=== PATIENT | female | born 1945 | race Caucasian/White ===

== ENCOUNTER → 2021-01-18 09:24 | Outpatient (CLI) | payer MEDICARE, SELFPAY ==
--- NOTE | ~2021-01-18 | MR_ITS ---
EXAMINATION: MR lumbar spine wo con DATE: 01/18/2021 10:29 INDICATION: Lumbar radiculopathy TECHNIQUE: Magnetic resonance imaging (MRI) of the lumbar spine was performed without intravenous con trast. Sequences included sagittal T2-weighted FSE, sagittal T2-weighted FS FSE, sagittal T1-weighted FSE, and axial T2-weighted FSE. COMPARISON: None FINDINGS: 1-2 mm retrolisthesis L2 on L3 and L3 on L4. Vertebral body heights are normal. Hemangiomas at L2, L3 and S1. Mild disc height loss at L2-L3 and L4-L5, disc desiccation and minimal disc height loss at L 3-L4. Annular fissures at each of these levels. The conus medullaris terminates at L1-L2. There is no rmal signal in the caudal spinal cord. Paravertebral soft tissues are unremarkable. The following dis c levels are specifically discussed: T12-L1: Small central disc protrusion. There is mild bilateral facet joint osteoarthritis. There is n o neural foraminal stenosis. There is no central canal stenosis. L1-L2: Small central disc protrusion. There is mild left and moderate right facet joint osteoarthriti s. There is no neural foraminal stenosis. There is no central canal stenosis. L2-L3: Disc is bulging. There is mild left and moderate right facet joint osteoarthritis. There is mi ld left and minimal right neural foraminal stenosis. There is mild central canal stenosis. L3-L4: Disc is bulging. There is mild left and moderate right facet joint osteoarthritis. There is mi ld bilateral neural foraminal stenosis. There is mild central canal stenosis. L4-L5: Disc is bulging. There is hypertrophy of the ligamentum flavum. There is severe bilateral face t joint osteoarthritis. There is moderate left and mild to moderate right neural foraminal stenosis. There is anterior bulging of the posterior epidural fat. There is mild to moderate central canal sten osis along with narrowing of the left and right lateral recesses. L5-S1: The disc does not extend beyond the endplate margin. There is severe bilateral facet joint ost eoarthritis. There is minimal bilateral neural foraminal stenosis. There is no central canal stenosis . IMPRESSION: 1. Multilevel lumbar degenerative disc disease and moderate to severe facet osteoarthritis. Reviewed, dictated and finalized at location B. TENANT FIRE FIGHTER IMPRESSION: 1. Multilevel lumbar degenerative disc disease and moderate to severe facet ost eoarthritis.
== END ==
PROVIDERS: PCP Family Medicine; Visit Provider Family Medicine
DX: M47.25 Other spondylosis with radiculopathy, thoracolumbar region (principal); M48.05 Spinal stenosis, thoracolumbar region; M47.27 Other spondylosis with radiculopathy, lumbosacral region; M48.07 Spinal stenosis, lumbosacral region
CPT/HCPCS: 72148

== ENCOUNTER 2024-10-08 15:29 | Emergency (ER) | payer MEDICARE, SELFPAY ==
--- OUTSIDE RECORDS SUMMARY | 2024-10-07 14:30 | XMS_ITS | Encounter Summary ---
Author Organization [facility] Healthcare Address [address] [place] [address] Care Team Providers Care Dry Room Attendant Name Role Phone David Chiang DPM Unavailable [phone] Jaylin Mackey DO Primary Care Provider [phone] Reason for Visit * Reason Comments Pain Encounter Details Date Type Department Care Team (Late st Contact Info) Description 10/07/2024 2:30 PM CDT Office Visit [facility] Medical Group Orthopedics and Sports Medicine [address] [place] [address] [address] [place] [phone] Daryl Martinez MD [address] [place] [place] [id number] Rotator cuff tear arthropathy, left (Primary Dx) Social History Tobacco Use Types Packs/Day Years Used Date Smoking Tobacco: Former Cigarettes 1 1974 Smokeless Tobacco: Never Alcohol Use Standard Drinks/Week Comments Not Currently 0 (1 standard drink = 0.6 oz pur e alcohol) Humiliation, Afraid, Rape, and Kick questionnair e Answer Date Recorded Within the last year, have y ou been afraid of your partner or ex-partner? No 12/09/2019 Within the last year, have y ou been humiliated or emotionally abused in other ways by your partner or ex-partner? No Within the last year, have y ou been kicked, hit, slapped, or otherwise physically hurt by your partner or ex-partner? No 12/09/2019 Within the last year, have y ou been raped or forced to have any kind of sexual activity by your partner or ex-partner? No 12/09/2019 Social Connection and Isolation Panel Answer Date Recorded In a typical week, how many times do you talk on the phone with family, friends, or neighbors? More than three times a week 12/09/2019 How often do you get togethe r with friends or relatives? More than three times a week 12/09/2019 How often do you attend chur ch or advent services? Never 12/09/2019 Do you belong to any clubs o r organizations such as restorationism groups, unions, fraternal or athletic groups, or school groups? Yes 12/09/2019 How often do you attend meet ings of the clubs or organizations you belong to? More than 4 times per year 12/09/2019 Are you , , di vorced, , never , or living with a partner? 12/09/2019 AUDIT-C Answer Date Recorded Q1: How often do you have a drink containing alcohol? Never 03/20/2023 Q2: How many drinks containi ng alcohol do you have on a typical day when you are drinking? Patient does not drink Q3: How often do you have si x or more drinks on one occasion? Never 03/20/2023 Overall Financial Resource Strain (CARDIA) Answe r Date Recorded How hard is it for you to pa y for the very basics like food, housing, medical care, and heating? Not hard at all 12/09/2019 PHQ-2 Answer Date Recorded PHQ-2 Total Score (If total score is 3 or more points, staff should administer the PHQ-9) 0 12/14/2022 [facility] - Occupational Stress Questionnaire Answer Date Recorded Do you feel stress - tense, restless, nervous, or anxious, or unable to sleep at night because your mind is troubled all the time - these days? Not at all 12/09/2019 Exercise Vital Sign Answer Date Recorde d On average, how many days pe r week do you engage in moderate to strenuous exercise (like a brisk walk)? 1 day 12/09/2019 On average, how many minutes do you engage in exercise at this level? 40 min 12/09/2019 Hunger Vital Sign Answer Date Recorded Within the past 12 months, y ou worried that your food would run out before you got the money to buy more. Never true 12/09/19 20 Within the past 12 months, t he food you bought just didn't last and you didn't have money to get more. Never true 12/09/2019 PRAPARE - Transportation Answer Date Re corded In the past 12 months, has l ack of transportation kept you from medical appointments or from getting medications? No 11/13 In the past 12 months, has l ack of transportation kept you from meetings, work, or from getting things needed for daily living? No 12/09/2019 Personal Safety Answer Date Recorded Have you ever been in or are you currently in a harmful physical or emotional relationship or is someone making you feel afraid or unsafe? Denies 12/27/2022 Education Answer Date Recorded What is the highest level of school you have completed or the highest degree you have received? 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 Gender Identity Not on file Sexual Orientation Not on file Occupation Industry Job Start Date Job End Date reitred Not on file Not on file Not on file documented as of this encounter Last Filed Vital Signs Vital Sign Reading Time Taken Comments Blood Pressure - - Pulse - - Temperature - - Respiratory Rate - - Oxygen Saturation - - Inhaled Oxygen Concentration - - Weight 83.5 kg (184 lb) 10/07/2024 2:17 PM CDT Height 162.6 cm (5' 4) 10/07/2024 2:17 PM CDT Body Mass Index 31.58 10/07/2024 2:17 PM CDT documented in this encounter Progress Notes * Daryl Martinez MD - 10/07/2024 2:30 PM CDT This patient has verbally consented to recording this visit in order to utilize AI technology in generating this note. VISIT DATE: 10/07/2024 CHIEF COMPLAINT Pain of the Left Shoulder HISTORY OF PRESENT ILLNESS History of Present Illness Marcela Campos is a 79 year old female who presents with worsening left shoulder pain and limited mobility. She has experienced left shoulder issues for the past three years, with severe pain rated as an eight or nine out of ten at its worst, currently a five out of ten. The pain is persistent and significantly impacts her ability to lift her arm, which she has been unable to do for the past two years. It also disrupts her sleep. She has not received any recent cortisone injections for her shoulder. An MRI at [facility] was part of her previous workup. She manages her pain with natural substances from [place], which she finds more effective than prescribed pain medications. She is prescribed oxycodone 25 mg to be taken threetimes a day but avoids taking it regularly. No numbness or tingling in the left arm. She has had a challenging experience with previous doctors, including a misdiagnosis of diabetes, and has expressed frustration with the delay in surgical intervention for her shoulder issues. MEDICATIONS She has a current medication list which includes the following prescription(s): acetaminophen er, buspirone, cholecalciferol, cyanocobalamin, ergocalciferol, ferrous sulfate, hydrocortisone, lamotrigine, melatonin, multivitamin, omeprazole, oxycodone-acetaminophen, syringe with needle, trazodone, vitamin b complex, atorvastatin, docosahexaenoic acid/epa, losartan, nystatin, oxybutynin xl, and tizanidine. ALLERGIES She is allergic to haemophilus influenzae type b, latex, influenza virus vaccine bivalent, flexeril[cyclobenzaprine], haemophilus b polysaccharide conj w/tetanus toxoid, penicillins, seroquel [quetiapine], and tuberculin ppd. SOCIAL HISTORY reports that she quit smoking about 50 years ago. Her smoking use included cigarettes. She started smoking about 62 years ago. She has a 12 pack-year smoking history. She has never used smokeless tobacco. She reports that she does not use drugs. Patient denies consuming alcoholic drinks. PHYSICAL EXAM Physical Exam SKIN: Skin intact over the shoulder. Nontender to palpation over the shoulder. SHOULDER: Left shoulder forward elevation to 30 degrees, passive forward elevation to 120 degrees. External rotation to 20 degrees. Internal rotation to PSIS. STRENGTH: Left shoulder 4/5 strength with resisted external rotation. 2/5 strength with thumbs downabduction. NEURO: 5 out of 5 strength in scheduling agent, dorsal interossei, and thumb extension. Sensation intact to light touch in the distribution of the radial, ulnar, and median nerves. The extremity is warm and wellperfused. NECK: Full neck range of motion. Negative Spurlings sign. IMAGING Results I reviewed and interpreted x-rays of the patient's left shoulder from 08/18/2024. The patient does have superior elevation of the left humeral head. There is mndt-jz-oqxj osteoarthritis of the superior glenohumeral joint space and a decreased acromial humeral interval. There were subchondral cysts in the superior humeral head. There were mild degenerative changes of the acromioclavicular joint space. I also reviewed an MRI scan of the patient's left shoulder from 08/27/2024. The patient does have eudh-sb-typu osteoarthritis of the glenohumeral joint space with a moderate size effusion. The patient has good deltoid muscle belly without any signs of atrophy of the deltoid. The patient does have a massive tear of the supraspinatus and infraspinatus tendons retracted to the glenohumeral jointspace. The patient does have severe fatty atrophy of the infraspinatus and supraspinatus muscle bellies. There is some mild atrophy of the teres minor muscle belly. Diagnoses and all orders for this visit: Rotator cuff tear arthropathy, left (Primary) ASSESSMENT End-stage rotator cuff tear arthropathy left shoulder 2. The patient getting care reestablished with PMD and cd mixer helper in preparation for shoulder replacement Assessment & Plan Left shoulder rotator cuff tear with advanced osteoarthritis Chronic tear of supraspinatus and infraspinatus tendons with severe arthritis and vrkc-el-syqv contact. Deltoid muscle intact, suitable for surgery. Pain significantly affects sleep and daily activities. - Recommend reverse shoulder replacement surgery to improve arm elevation and pain relief. - Refer to cd mixer helper at [facility] for cardiac evaluation prior to surgery. - Refer to primary care physician at [facility] for preoperative evaluation and management. - Schedule follow-up in six weeks to review progress and readiness for surgery. 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) Take 1 tablet (15 mg total) by mouth daily Patient Reported 02/20/2022 10/07/2024 nitrofurantoin monohydrate (MACROBID) 100 mg capsule Take 1 capsule (100 mg total) by mouth 2 (two) times a day Patient Reported 03/12/2023 10/07/2024 spironolactone (ALDACTONE) 25 mg tabletIndications:Rheumat ic tricuspid insufficiency Take 1 tablet (25 mg total) by mouth 2 (two) times a day Patient Reported 02/20/2022 10/07/2024 documented as of this encounter Care Teams Dry Room Attendant Relationship Specialty Start Date End Date Jaylin Mackey DO [address] [place] [address] PCP - General Family Medicine 08/18/24 David Chiang, ALLEY Referring Physician Podiatry 12/09/19 documented as of this encounter
--- OUTSIDE RECORDS SUMMARY | 2024-10-07 14:30 | XMS_ITS | Encounter Summary ---
Author Organization [facility] Healthcare Address [address] [place] [address] Care Team Providers Care Television Parts Tester Name Role Phone David Chiang DPM Unavailable [phone] Jaylin Mackey DO Primary Care Provider [phone] Reason for Visit * Reason Comments Pain Encounter Details Date Type Department Care Team (Late st Contact Info) Description 10/07/2024 2:30 PM CDT Office Visit [facility] Medical Group Orthopedics and Sports Medicine [address] [place] [address] [address] [place] [phone] Daryl Martinez MD [address] [facility] [address] [place] [place] [id number] Rotator cuff tear arthropathy, left (Primary [...] often do you attend chur ch or sabianist services? Never 12/09/2019 Do you belong to any clubs o r organizations such as evangelical groups, unions, fraternal or athletic groups, or [...] PHQ-9) 0 12/14/2022 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 An MRI at [facility] was part of her previous workup. She manages her pain with natural substances from [place], which she finds more effective than prescribed [...] NEURO: 5 out of 5 strength in it application administrator, dorsal interossei, and thumb extension. Sensation intact to light touch in the distribution of the radial, ulnar, and median nerves. The extremity is warm and wellperfused. NECK: Full neck range of motion. Negative Spurlings sign. IMAGING Results I reviewed and interpreted x-rays of the patient's left shoulder from 08/18/2024. The patient does have superior elevation of the left humeral head. There is ysct-rc-vpza osteoarthritis of the superior glenohumeral joint space and a decreased acromial humeral interval. There were subchondral cysts in the superior humeral head. There were mild degenerative changes of the acromioclavicular joint space. I also reviewed an MRI scan of the patient's left shoulder from 08/27/2024. The patient does have nwfl-bh-sdzp osteoarthritis of the glenohumeral joint space with [...] patient getting care reestablished with PMD and research instructor in preparation for shoulder replacement Assessment & Plan Left shoulder rotator cuff tear with advanced osteoarthritis Chronic tear of supraspinatus and infraspinatus tendons with severe arthritis and dnnd-fu-aaft contact. Deltoid muscle intact, suitable for surgery. Pain significantly affects sleep and daily activities. - Recommend reverse shoulder replacement surgery to improve arm elevation and pain relief. - Refer to research instructor at [facility] for cardiac evaluation prior to surgery. - Refer to primary care physician at [facility] for preoperative evaluation and management. - Schedule [...] documented as of this encounter Care Teams Television Parts Tester Relationship Specialty Start Date End Date Jaylin Mackey DO [address] [place] [address] PCP - General Family Medicine 08/18/24 David Chiang, ALLEY Referring Physician Podiatry 12/09/19 documented as of this encounter
--- NOTE | ~2024-10-08 | CT_ITS ---
EXAMINATION: CT brain odalis lau, 10/08/2024 18:08 CDT HISTORY: head trauma 3 days prior, confusion COMPARISON: No comparisons available. Technique: Axial images obtained of the brain without contrast. One or more of the following dose reduction techniques were used: automated exposure control, adjustment of the mA and/or kV according to patient size, use of iterative reconstruction technique. Findings: No acute infarct or parenchymal hemorrhage. No abnormal mass or mass effect. No midline shift. No extra-axial fluid collections. No hydrocephalus. Mastoid air cells unremarkable. Sinuses and orbits unremarkable. No acute fracture. No significant facial or scalp soft tissue swelling evident. No radiopaque foreign body is seen. Impression: 1.No acute intracranial abnormality. Reviewed, dictated and finalized at location A. Impression: 1.No acute intracranial abnormality.
[2024-10-08 15:31] VITALS: BP 129/58; PULSE 67; RESP 17; TEMP 36.4; O2SAT 97
--- OUTSIDE RECORDS SUMMARY | 2024-10-08 15:32 | XMS_ITS | Encounter Summary ---
Author Organization [facility] Address [address] [place] [address] [place] [address] Care Team Providers Care Special Population Paraprofessional Name Role Phone Kody Valdivia MD Primary Care Provider Kody Valdivia MD Unavailable Phillip Jefferson MD Unavailable [phone] Unknown, Provider Primary Care Provider Unavaila ble Encounter Details Date Type Department Care Team (Late Contact Info) Description 04/12/2020 Lab Requisition [facility] Care DermPath Lab [address] [place] [phone] Elma Marino MD [address] [facility] [address] [place] [address] Social History Tobacco Use Types Packs/Day Years Used Date Smoking Tobacco: Former Cigarettes 1 12 1 03/20/1970 - 01/17/1983 Alcohol Use Standard Drinks/Week Comments No 0 (1 standard drink = 0.6 oz pur e alcohol) Comments Unknown Sex and Gender Information Value Date Recorded Sex Assigned at Not on file 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 Author Blood Pressure < 140/90 Blood Pressure Hyperlipidemia 130/79(09/14 9:48 AM CDT) No Santi Carrasco STEVEN LDL CALCULATED < 130 Result Component Hyperlipidemia 127(01/17/20 12 3:25 AM DECORATOR MANNEQUIN) No Santi Carrasco STEVEN Weight (LB) < 200 lb Weight Hyperlipidemia 105.7 kg (233 lb)(09/15/19 16 9:48 AM CDT) No Santi Carrasco STEVEN documented as of this encounter Procedures Procedure Name Priority Date/Time Associated Diagnosis Comments DERMATOPATHOLOGY Routine 04/08/2020 12:0 0 AM DECORATOR MANNEQUIN documented in this encounter Results * DERMATOPATHOLOGY (04/08/2020 12:00 AM DECORATOR MANNEQUIN) Case Report Dermatopathology Report Case: [id number] Authorizing Provider: Elma Marino MD Collected: 04/08/2020 12:00 AM Ordering Location: [facility] DermPath Lab Received: 04/12/2020 10:21 AM Pathologist: Felicita Rodriguez MD Specimen: Skin, left forehead 1:29 PM [facility] DERMATOPATHOLOGY LABORATORY Final Diagnosis Specimen A. SKIN, left forehead: SQUAMOUS CELL CARCINOMA IN SITU, PRESENT AT THE BASE OF THE SPECIMEN (D04.39) (see microscopic description and comment) 1:29 PM [facility] DERMATOPATHOLOGY LABORATORY at [address] DEC[address] MANNEQUIN Clinical History R/O SCC, SK. 1:29 PM [facility] DERMATOPATHOLOGY LABORATORY Gross Description Specimen A: Received is one formalin filled container labeled with the patient's name and designated left forehead. The specimen consists of a shave biopsy measuring [id number]. Jar 0+. 1:29 PM [facility] DERMATOPATHOLOGY LABORATORY Microscopic Description Specimen A. SKIN, left forehead: The epidermis shows parakeratosis, full thickness disorderly maturation of keratinocytes, mitoses at different levels, and dyskeratotic cells. The lesion extends to the base of the biopsy. COMMENT: An invasive squamous cell carcinoma cannot be ruled out. 1:29 PM [facility] DERMATOPATHOLOGY LABORATORY Disclaimer An external and internal positive and negative controls are appropriate for the histochemical, immunohistochemical and immunofluorescence stain(s) in this case (if any), except where stated explicitly. The performance characteristics of the stain(s) cited in this report were developed and its performance characteristic determined by the Dermatopathology Laboratory at [facility], directed by Dr. Adina Rodriguez. These tests need not be, and therefore are not, approved by the [place] Food and Drug Administration. The tests are used for clinical purposes. Billing Codes Specimen Charges Stain Charges 08960 1 1 1:29 PM DEC[facility]IN DERMATOPATHOLOGY LABORATORY Embedded Images 1 1:29 PM DEC[facility]NE[facility] DERMATOPATHOLOGY LABORATORY Pathology/Cytolog y TISSUE SPECIMEN FROM SKIN / Unknown 04/08/2020 04/12/2020 10:21 AM DECORATOR MANNEQUIN Elma Marino MD LAB - PATHOLOGY/CYTOLOGY ORD ERABLES Final Result DERMATOPATHOLOGY LABORATORY [facility] - Department of Dermatology [facility] Medicine [address] [place] [address], [address] [phone] documented in this encounter Visit Diagnoses Not on filedocumented in this encounter Care Teams Special Population Paraprofessional Relationship Specialty Start Date End Date Kody Valdivia MD [address] [address] PCP - General 04/12/20 05/18/24 Unknown, Provider PCP - General 05/19/24 Kody Valdivia MD [address] [place] [address] 04/12/20 Phillip Jefferson MD [address] [place] [address] Neurology 11/19/12 documented as of this encounter
--- OUTSIDE RECORDS SUMMARY | 2024-10-08 15:32 | XMS_ITS | Clinical Summary ---
Author Organization [employer] Address [address] Attn: Epic Prelude ADT AAYUSH GALLAGHER [address] Care Team Providers Care Almond Pan Finisher Name Role Phone Todd Walters MD Primary Care Provider Allergies Active Allergy Reactions Criticality Noted Date Comments Ibuprofen Unknown Latex Other (See Comments) 07/25/2016 Unknown Penicillins Unknown Quetiapine Dizziness Low 09/15/2015 Medications hyoscyamine 0.125 mg tablet Take 1 Tablet (0.125 mg) by mouth every 6 hours as needed for Spasm. 30 Tablet None Active Additional Information Patient not taking.Reported on 09/22/2024 ondansetron (ZOFRAN) 4 mg Tablet Take 1 Tablet (4 mg) by mouth every 6 hours as needed for Nausea/Emesis. 20 Tablet 0 7 Active Additional Information Patient not taking.Reported on 09/22/2024 Hydrocortisone- Pramoxine 1-1 % Cream Apply to affected area. 7 Active Additional Information Patient not taking.Reported on 09/22/2024 prazosin (MINIPRESS) 1 mg capsule Take 1 mg by mouth daily at bedtime. 7 Active Additional Information Patient not taking.Reported on 09/22/2024 doxepin (SINEquan) 150 mg Capsule Take 150 mg by mouth daily at bedtime. 7 Active Additional Information Patient not taking.Reported on 09/22/2024 meloxicam (MOBIC) 15 mg tablet Take 15 mg by mouth daily. 7 Active Additional Information Patient not taking.Reported on 09/22/2024 amLODIPine (NORVASC) 10 mg tablet Take 10 mg by mouth daily. 7 Active Additional Information Patient not taking.Reported on 09/22/2024 traZODone (DESYREL) 100 mg tablet Take 100 mg by mouth daily at bedtime. 7 Active melatonin 3 mg Tablet Take 3 mg by mouth 1 time daily as needed. Active oxyCODONE (ROXICODONE) 5 mg tablet 5 Active oxyBUTYnin (DITROPAN XL) 10 mg Extended Release 24 hour tablet 4 Active Active Problems Problem Noted Date Diagnosed Date Type II or unspecified type diabetes mellitus without mention of complication, not stated as uncontrolled 12/02/2009 HTN (hypertension) 12/02/2009 Unspecified menopausal and postmenopausal disord er 12/02/2009 Hypothyroidism 10/08/2008 CHF (congestive heart failure) 10/08/2008 Bipolar disorder, unspecified Depressive disorder, not elsewhere classified Resolved Problems Problem Noted Date Diagnosed Date Resolved Date HTN (hypertension) 10/08/2008 0 Overview (06/09/2020): Updating IMO/ICD9 Code and Description Diabetes mellitus type II, uncontrolled 05/27/2008 12/02/2009 Encounters Date Type Department Care Team Description 09/23/2024 External Device Data STL ABSTRACTION Provider, Abstract 09/23/2024 External Device Data STL ABSTRACTION Provider, Abstract 09/23/2024 External Device Data STL ABSTRACTION Provider, Abstract 09/22/2024 2:30 PM CDT Office Visit [facility] 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 - [facility] [address] [facility] [address] [address] Tita Hayward MD Rectocele (Primary Dx); Urinary incontinence, unspecified type from Last 3 Months Immunizations Immunization Administration Dates Next Due Tetanus Vaccine IM 09/21/2008 Social History Tobacco Use Types Packs/Day Years Used Date Smoking Tobacco: Former Alcohol Use Standard Drinks/Week Comments No 0 (1 standard drink = 0.6 oz pur e alcohol) Comments No Sex and Gender Information Value Date Recorded Sex Assigned at Not on file Legal Sex 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 Gender Identity Not on file Sexual Orientation Not on file Last Filed Vital Signs Vital Sign Reading Time Taken Comments Blood Pressure 106/70 09/22/2024 2:35 PM CDT Pulse - - Temperature 37.1 C (98.8 F) 07/25/2016 10:21 PM CDT Respiratory Rate 15 07/25/2016 11:30 PM CDT Oxygen Saturation - - Inhaled Oxygen Concentration - - Weight 84 kg (185 lb 3.2 oz) 09/22/2024 2:35 PM CDT Height 163.8 cm (5' 4.5) 09/22/2024 2:35 PM CDT Body Mass Index 31.3 09/22/2024 2:35 PM CDT Plan of Treatment Upcoming Encounters Date Type Department Care Team (Late st Contact Info) Description 08/20/2025 3:00 PM CDT Office Visit [facility] Minimally Invasive Gynecology [address] [place] [address] Tita Hayward MD [address] [phone] Aditya Sandy MD [address] [place] [address] Health Maintenance Due Date Last Done Comments DIABETES ANNUAL FOOT EXAM 1963 DIABETES MICROALBUMIN ANNUAL SCREEN 1963 LDL CHOLESTEROL ANNUAL 1964 OSTEOPOROSIS SCREENING 08/20/2011 ZOSTER VACCINE (2 of 2) 12/14/2017 10/19/2017 RSV VACCINE (60+ or ) (1 - 1-dose 75+ series) 2021 DIABETES HBA1C Q 6 MONTHS 06/29/20232022, 11/21/2021, 04/07/2010 INFLUENZA VACCINE (#1) 2024 DIABETES ANNUAL RETINAL EXAM 05/19/2025 05/19/2024 DTAP/TDAP/TD VACCINES (3 - T d or Tdap) 06/08/2031 06/07/2021, 09/21/2008 PNEUMOCOCCAL VACCINE 50+ YEARS Completed 0 04/19/2023, 12/09/2019, 06/07/2017 Insurance MEDICARE PART A AND B [employer] MEDICARE SUPP AESSI Advance Directives For more information, please contact: [phone] Documents on File Type Date Recorded Patient Hydro Generation Supervisor Expl anation Advance Directive Living Will 08/08/2016 2:05 PM Advance Directive Living Will Care Teams Almond Pan Finisher Relationship Specialty Start Date End Date Todd Walters MD [facility] [address] [place] [id number] PCP - General Internal Medicine 07/25/16
--- OUTSIDE RECORDS SUMMARY | 2024-10-08 15:32 | XMS_ITS | Encounter Summary ---
Author Organization [facility] Address [facility] [place] [address] Care Team Providers Care Canceling Machine Operator Name Role Phone David Leos MD Primary Care Provider [phone] None, Provider Primary Care Provider Solange Rowe DO Primary Care Provider + [phone] None, Provider Primary Care Provider Earle sunshine Encounter Details Date Type Department Care Team (Late st Contact Info) Description 11/07/2017 Hosp Visit [facility] Outpatient [place] [address] [place] [address] Angela Bhatia, PT [address] [place], [place] [id number] Social History Tobacco Use Types Packs/Day Years Used Date Smoking Tobacco: Former Cigarettes 1 960 - 1970 Smokeless Tobacco: Never Alcohol Use Standard Drinks/Week Comments No 0 (1 standard drink = 0.6 oz pur e alcohol) Comments No Sex and Gender Information Value Date Recorded Sex Assigned at Not on file Legal Sex Female 7:56 PM CDT Gender Identity Not on file Sexual Orientation Not on file Occupation Industry Job Start Date Job End Date Not on file Not on file Not on file Not on file documented as of this encounter Progress Notes * Angela Bhatia, PT - 11/07/2017 11:35 AM CDT Marcela Campos [address](R) 1. Foot pain, bilateral PAIN IN BOTH FEET 2. Plantar fasciitis, bilateral BILATERAL PLANTAR FASCIITIS 3. Dizziness DIZZINESS 4. Gait disturbance ABNORMAL GAIT 11/07/17 Patient called and cancelled appointment for today and all future appointments. States she saw supervisor instrument mechanics on 11/05/17 who wants her to DC OP PT due to pinched nerves in Bilateral feet. DC OP PT due to patient and physician request. 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
--- OUTSIDE RECORDS SUMMARY | 2024-10-08 15:32 | XMS_ITS | Clinical Summary ---
Author Organization [facility] [employer] Address [facility] [facility] [place] [address] Care Team Providers Care Director Shopper Marketing Name Role Phone Kody Valdivia MD Unavailable Phillip Jefferson MD Unavailable [phone] Unknown, Provider Primary Care Provider Unavaila ble Source Comments [facility] [employer],non-owned Affiliates and Associated Physician Practices is amultiple site organization consisting of ambulatory clinics and hospital sitesin [place], [place], [place] and [place]. This disclosure is being madepursuant to the Care Everywhere program and may not contain all information available regarding this patient. Last updated 17.[facility] [employer] Allergies Active Allergy Reactions Criticality Noted Date Comments Ibuprofen 01/16/2012 Latex 09/15/2015 Penicillin G 09/15/2015 Penicillins Urticaria 09/15/2015 Quetiapine Dizziness 09/15/2015 Medications * This document contains information received from the source organization and may not represent a complete record from that organization. * Be aware that medications may not be up to date on this document. Alwaysverify current medications with the patient. lamoTRIgine (LAMICTAL) 150 MG tablet Take 1 Tab by mouth once daily. 30 Tab 0 2 Active DULoxetine (CYMBALTA) 60 MG capsuleIndicati ons:Major Depressive Disorder Take 2 Caps by mouth at bedtime. Indications: Major Depressive Disorder 60 Cap 0 2 Active traZODone (DESYREL) 50 MG tablet Take 1 Tab by mouth nightly as needed for Insomnia. 30 Tab 0 2 Active valsartan-hydro chlorothiazide (DIOVAN HCT) 160-12.5 MG tabletIndicatio ns:Hypertension Take 1 Tab by mouth once daily. Indications: High Blood Pressure 2 Active lamoTRIgine XR 24hr (LAMICTAL XR) 200 MG tablet LAMICTAL XR 200 MG [id number] [LAMOTRIGINE] ; Rx by [facility]. Take one tab by mouth daily.; 09-Jul-2013; Active; Comments: n/a; Quantity: n/a; Refills: n/a; 4 Active Venlafaxine HCl (VENLAFAXINE ER 24HR) 75 MG tablet 6 Active doxepin (SINEQUAN) 100 MG capsule 6 Active traZODone (DESYREL) 150 MG tablet TRAZODONE HCL 150 MG TABS [TRAZODONE HCL] ; Presribed by Psychiatrist. Take two tabs by mouth at bedtime.; 10-Jun-2013; Active; Comments: n/a; Quantity: n/a; Refills: n/a; 4 Active meloxicam (MOBIC) 15 MG tablet Take 15 mg by mouth once daily Active HYDROcodone-justin taminophen (NORCO) 5-325 MG tablet Take 1 Tab by mouth every 8 hours as needed for Pain 30 Tab 0 6 Active vitamin D (CHOLECACIFEROL ) 5000 UNITS Take 1 Cap by mouth once daily 6 Active levothyroxine (SYNTHROID) 75 MCG tablet Take 1 Tab by mouth daily before breakfast 90 Tab 3 6 Active clonazePAM (KLONOPIN) 1 MG tablet 1 Tab 2 times daily as needed for Anxiety 14 Tab 0 6 Active Active Problems Problem Noted Date Diagnosed Date Obesity, Class II, BMI 35-39.9, with comorbidity 12/15/2015 Overview (12/15/2015): BMI 39.99 Abnormality of gait 09/15/2015 Overview (09/15/2015): By: Hector SINGH, TALIA, Gabe; Anxiety disorder 09/15/2015 Overview (09/15/2015): By: Juan Valerio MD; Dorsalgia 09/15/2015 Overview (09/15/2015): By: Hector SINGH CNP, Christopher; Bipolar disorder, in partial remission, most recent episode mixed 09/15/2015 Overview (09/15/2015): By: Hector SINGH CNP, Christopher; Major depressive disorder, single episode 2015 Overview (09/15/2015): By: Juan Valerio MD; Essential (primary) hypertension 09/15/2015 Overview (09/15/2015): By: Juan Valerio MD; Hypothyroidism 09/15/2015 Overview (09/15/2015): By: Hector SINGH CNP, Christopher; Insomnia 09/15/2015 Overview (09/15/2015): By: Hector SINGH CNP, Christopher; Pain in joint 09/15/2015 Overview (09/15/2015): By: Hector SINGH CNP, Christopher; Rheumatoid arthritis 09/15/2015 Overview (09/15/2015): By: Juan Valerio MD; 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 Overview (09/15/2015): By: Juan Valerio MD; 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 Overview (09/15/2015): By: Hector SINGH CNP, Christopher; Vitamin D deficiency 09/15/2015 Rhabdomyolysis 01/23/2012 Anemia 01/23/2012 Elevated liver enzymes 01/22/2012 Hypokalemia 01/22/2012 Cellulitis 01/22/2012 Sinusitis, acute 01/22/2012 GERD (gastroesophageal reflux disease) 2 Prolonged QT interval 01/22/2012 Hyperlipidemia 01/22/2012 Overview (09/15/2015): By: Juan Valerio MD; Medication overdose Acute kidney injury Resolved Problems Problem Noted Date Diagnosed Date Resolved Date Muscle weakness (generalized) 01/17/2012 01/22/2012 Hyperkalemia 01/22/2012 Leukocytosis 01/22/2012 Hepatitis 01/22/2012 Social History Tobacco Use Types Packs/Day Years Used Date Smoking Tobacco: Former Cigarettes 1 12 1 03/20/1970 - 01/17/1983 Tobacco Cessation:Counseling Given: Yes Alcohol Use Standard Drinks/Week Comments No 0 (1 standard drink = 0.6 oz pur e alcohol) Comments Unknown Sex and Gender Information Value Date Recorded Sex Assigned at Not on file Legal Sex Female 10:01 AM 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 Gender Identity Not on file Sexual Orientation Not on file Last Filed Vital Signs Vital Sign Reading Time Taken Comments Blood Pressure 130/79 09/15/2015 9:48 AM CDT Pulse 81 09/15/2015 9:48 AM CDT Temperature 36.8 C (98.3 F) 09/15/2015 9:48 AM CDT Respiratory Rate 18 09/15/2015 9:48 AM CDT Oxygen Saturation 93% 09/15/2015 9:48 AM CDT Inhaled Oxygen Concentration - - Weight 105.7 kg (233 lb) 09/15/2015 9:48 AM CDT Height 162.6 cm (5' 4) 09/15/2015 9:48 AM CDT Body Mass Index 39.99 09/15/2015 9:48 AM CDT Plan of Treatment Upcoming Encounters Date Type Department Care Team (Late st Contact Info) Description 05/25/2025 2:00 PM CDT Office Visit [facility] - Ophthalmology [address] [place] [phone] Casey Scales, DANNA [address] [place] [phone] Health Maintenance Due Date Last Done Comments BONE DENSITY TESTING 1945 MEDICARE AWV 12 MONTHS 1945 DTAP/TDAP/TD VACCINES (1 - Tdap) 1965 PNEUMOCOCCAL VACCINE 50+ (1 of 2 - PCV) 1965 ZOSTER VACCINE (1 of 2) 1996 Respiratory Syncytial Virus (RSV) Vaccine Pt: or over 60 yrs (1 - 1-dose 75+ series) 2021 COVID-19 VACCINE (2023-2 5 season) 2023 INFLUENZA VACCINE (#1) 2024 HEPATITIS C SCREENING Completed 01/19/2012 HEPATITIS B VACCINE Aged Out No longe r eligible based on patient's age to complete this topic HIB VACCINE Aged Out No longer eligi ble based on patient's age to complete this topic HPV VACCINE Aged Out No longer eligi ble based on patient's age to complete this topic MENINGOCOCCAL (Group B) VACC INE SHARED DECISION-MAKING Aged Out No longer eligibl e based on patient's age to complete this topic MENINGOCOCCAL GROUPS A/C/Y/W VACCINE Aged Out No longer eligible b ased on patient's age to complete this topic Goals Goal Patient Goal Type Associated Problems Recent Progress Patient-Stated? Author Blood Pressure < 140/90 Blood Pressure Hyperlipidemia 130/79(09/14 9:48 AM CDT) No [facility] LDL CALCULATED < 130 Result Component Hyperlipidemia 127(01/17/20 12 3:25 AM JEWEL 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) No [facility] Weight (LB) < 200 lb Weight Hyperlipidemia 105.7 kg (233 lb)(09/15/19 16 9:48 AM CDT) No [facility] Procedures Procedure Name Priority Date/Time Associated Diagnosis Comments HEPATITIS SCREEN ACUTE AM Draw 01/19/2012 4:19 AM 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 from Last 3 Months or Most Recently Relevant to Health Maintenance Results * HEPATITIS SCREEN ACUTE (01/19/2012 4:19 AM JEWEL 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) HAV Antibody IgM Negative Negative 01/19/2012 9:27 AM [facility] HBc Antibody IgM Negative Negative 01/19/2012 9:27 AM [facility] HBsAg Negative Negative 01/19/2012 9:27 AM [facility] HCV Antibody Screen Negative Negative 01/19/2012 9:27 AM [facility] Hepatitis C Virus Index <0.02 0.00 - 0.99 01/19/2012 9:27 AM [facility] Blood specimen (specimen) BLOOD SPECIMEN / Unknown 01/19/2012 4:19 AM 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 01/19/2012 4:44 AM 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 Jose Luis Franco MD LAB - CHEMISTRY ORDERABLES Final Result [facility] [address] [place] [address] from Last 3 Months or Most Recently Relevant to Health Maintenance Insurance MEDICAID - [place] MED[place]ARE MEDICARE MEDICAID - OUT OF STATE MEDICARE AET MEDICAID - [place] MED[place]ARE MEDICARE Member Subscriber Plan / Payer (Ef fective 1989-Present) Name:Rani Busby Member ID:[id number] Relation to Subscriber:Self Name:RANI BUSBY Subscriber ID:[id number] Payer ID:Not on file Group ID:Not on file Type:Medicare Address: [place] [phone] MEDICARE MEDICARE Advance Directives * FULL RESUSCITATION (Latest Code Status on File) Date Activated Date Inactivated Comments 01/20/2012 8:59 PM 01/29/2012 5:07 PM * FULL RESUSCITATION Date Activated Date Inactivated Comments 01/17/2012 2:35 AM 01/20/2012 7:28 PM Care Teams Director Shopper Marketing Relationship Specialty Start Date End Date Unknown, Provider PCP - General 05/19/24 Kody Valdivia MD [address] [place] [address] 04/12/20 Phillip Jefferson MD [address] [place] [address] Neurology 11/19/12
--- OUTSIDE RECORDS SUMMARY | 2024-10-08 15:32 | XMS_ITS | Clinical Summary ---
Author Organization [facility] Address [address] [place] [id number] Care Team Providers Care Brake Lining Driller Name Role Phone David Chiang DPM Unavailable [phone] Jaylin Mackey DO Primary Care Provider [phone] Allergies Active Allergy Reactions Criticality Noted Date Comments Cyclobenzaprine Mental status changes Low 11/29/2022 Makes me feel depressed Haemophilus B Polysaccharide Conj W/Tetanus Toxoid Fatigue Low 04/12/2023 Haemophilus Influenzae Type B Swelling,Redness,Fa tigue Medium 03/13/2017 Influenza Virus Vaccine Bivalent Other (See comments) 04/12/2023 Latex Rash,Other (See comments) Medium 05/15/2018 eats away skin flesh eating Penicillins Other (See comments) Low 05/15/2018 Depression Quetiapine Other (See comments) Low 05/15/2018 Insomnia Tuberculin Ppd Redness Low 08/30/2018 Medications melatonin 10 mg tabletIndications :sleep Take 1 tablet (10 mg total) by mouth nightly Active cyanocobalamin (Vitamin B-12) 1,000 mcg/mL injectionIndicati ons:B12 deficiency Inject 1 mL (1,000 mcg total) into the muscle as instructed every 30 (thirty) days 10 mL 3 12/09/19 20 Active syringe with needle 3 mL 25 x 1 1/2 syringeIndication s:B12 deficiency Used to inject b12 once a month 10 Syringe 3 03/16/19 21 Active ferrous sulfate 325 mg (65 mg of elemental iron) tabletIndications :Iron Deficiency Anemia Take 1 tablet (325 mg total) by mouth every morning Active multivitamin capsuleIndication s:Vitamin Deficiency Prevention Take 1 capsule by mouth daily with lunch Active oxybutynin XL (DITROPAN-XL) 10 mg 24 hr tabletIndications :Bladder spasms Take 1 tablet (10 mg total) by mouth 2 (two) times a day 180 tablet 1 03/20/19 23 Active oxyCODONE-acetami nophen (PERCOCET) 5-325 mg per tabletIndications :Other spondylosis with radiculopathy, lumbar region,Lumbar radiculopathy Take 1 tablet by mouth 2 (two) times a day as needed for pain 60 tablet 03/20/19 23 Active lamoTRIgine (LaMICtal) 100 mg tabletIndications :Bipolar Disorder in Remission Take 1 tablet (100 mg total) by mouth nightly 90 tablet 1 05/05/19 23 Active Additional Information Patient taking differently: 150 mgoral Nightly, Indications: Bipolar Disorder in Remission, Informant: Self, Reported on 10/07/2024 cholecalciferol (VITAMIN D-3) 5,000 unit capsuleIndication s:Vitamin D Deficiency Take 1 capsule (5,000 Units total) by mouth daily with lunch 04/13/19 23 Active acetaminophen ER (TYLENOL) 650 mg 8 hr tabletIndications :Pain Take 2 tablets (1,300 mg total) by mouth as needed for pain 04/13/19 23 Active docosahexaenoic acid/epa (FISH OIL ORAL)Indications: supplement Take 1 tablet by mouth daily with lunch Active VITAMIN B COMPLEX ORALIndications:s upplement Take 1 tablet by mouth daily with lunch Active omeprazole (PriLOSEC) 20 mg capsuleIndication s:Treatment of Non-Bleeding Gastric Disorder Take 1 capsule (20 mg total) by mouth daily 30 capsule 2 12/27/19 23 Active Additional Information Patient taking differently:20 mg oralDaily (early AM), Indications: Treatment of Non-Bleeding Gastric Disorder, Informant: Self, Reported on 10/07/2024 busPIRone (BUSPAR) 15 mg tabletIndications :anxiety Take 1 tablet (15 mg total) by mouth 2 (two) times a day 180 tablet 2 01/03/20 23 Active ergocalciferol (VITAMIN D) 50,000 unit capsule Take 1 capsule (50,000 Units total) by mouth once a week 12 capsule 01/03/20 23 Active tiZANidine (ZANAFLEX) 4 mg tablet Take 1 tablet (4 mg total) by mouth daily 03/06/19 24 Active nystatin cream Apply topically as needed 02/15/19 24 Active losartan (COZAAR) 50 mg tablet Take 1 tablet (50 mg total) by mouth 2 (two) times a day 120 tablet 3 03/20/19 24 Active Additional Information Patient not taking.Reported on 10/07/2024 hydrocortisone 1 % cream Apply 1 Application topically 2 (two) times a day 30 g 03/21/19 24 Active traZODone (DESYREL) 150 mg tabletIndications :Primary insomnia Take 1 tablet (150 mg total) by mouth nightly 30 tablet 03/21/19 24 Active atorvastatin (LIPITOR) 10 mg tabletIndications :Elevated cholesterol Take 1 tablet (10 mg total) by mouth daily 90 tablet 4 03/30/19 24 Active meloxicam (MOBIC) 15 mg tabletIndications :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) Take 1 tablet (15 mg total) by mouth daily 90 tablet 02/20/19 23 025 Discontin ued(Patie nt Reported) spironolactone (ALDACTONE) 25 mg tabletIndications :Rheumatic tricuspid insufficiency Take 1 tablet (25 mg total) by mouth 2 (two) times a day 180 tablet 02/20/19 23 025 Discontin ued(Patie nt Reported) nitrofurantoin monohydrate (MACROBID) 100 mg capsule Take 1 capsule (100 mg total) by mouth 2 (two) times a day 03/12/19 24 025 Discontin ued(Patie nt Reported) citalopram (CeleXA) 40 mg tabletIndications :Generalized Anxiety Disorder,major depressive disorder Take 1 tablet (40 mg total) by mouth nightly 30 tablet 03/21/19 24 025 Discontin ued(Patie nt Reported) Hospital, Clinic, or Other Facility Administered Medication Ordered Dose Route Frequency Start Date End Date Status lidocaine (XYLOCAINE) 10 mg/mL (1 %) injection 1 mLIndications:Admi nistration of Local Anesthesia 1 mL One-Time Injection 09/24/2024 09/24/2024 Ended lidocaine (XYLOCAINE) 10 mg/mL (1 %) injection 1 mLIndications:Admi nistration of Local Anesthesia 1 mL One-Time Injection 09/24/2024 09/24/2024 Ended methylPREDNISolone acetate (DEPO-medrol) injection 40 mgIndications:Troc hanteric bursitis of right hip,Trochanteric bursitis of left hip 40 mg intra-artic One-Time Injection 09/24/2024 09/24/2024 Ended methylPREDNISolone acetate (DEPO-medrol) injection 40 mgIndications:Troc hanteric bursitis of right hip,Trochanteric bursitis of left hip 40 mg intra-artic One-Time Injection 09/24/2024 09/24/2024 Ended Active Problems Problem Noted Date Diagnosed Date Chronic pain of both shoulders 10/07/2024 Daytime somnolence 10/07/2024 Decrease in appetite 10/07/2024 Decreased vision in both eyes 10/07/2024 Dizziness 10/07/2024 MCKEON (dyspnea on exertion) 10/07/2024 Female bladder prolapse 10/07/2024 Joint stiffness 10/07/2024 Senile purpura 10/07/2024 Shoulder pain 10/07/2024 Small area radiologic density 10/07/2024 Atherosclerosis of aorta 06/17/2024 Coronary arteriosclerosis 06/17/2024 Hypertensive heart disease w ith congestive heart failure and chronic kidney disease 06/17/2024 Tendinitis of long head of biceps brachii of rig ht shoulder 10/18/2023 Impingement syndrome of right shoulder Primary osteoarthritis of left shoulder 03/22/19 24 Acute vaginitis 03/21/2023 Assessment & Plan (03/21/2023 5:49 PM [facility]): HPI: Condition is not at/near goal. Patient reporting dry external area around vagina from wiping and dryness. A&P: Sent hydrocortizone cream for external use only. Patient to call office if symptoms worsen or do not improve. At risk for polypharmacy 03/21/2023 Overview (03/21/2023): Concern for multiple PCPs Hyponatremia 03/09/2023 Overview (03/21/2023): HPI: Condition is unknown, no data to review at this time to make an evaluation. Sodium at ER visit 129. Resolved at 138 at discharge 03/10/2023. Need patient to get updated labs. Patient reports that she was septic and almost while in the ER. A&P: Discussed/ordered labs. Discussed events of patients ER visit and 1 night hospital stay - education provided on patient condition and the meaning of sepsis. Patient said believe what you want then. Patient will get repeat renal function panel completed 03/21/2023 to assure hyponatremia is resolved and kidney function return to her baseline. Metabolic encephalopathy 03/09/2023 Pelvic fullness 01/02/2023 Assessment & Plan (01/02/2023 10:38 AM [facility]): HPI: Condition is not at/near goal. Patient reports that she is a lways had vaginal pain for as long she can remember. Patient states that Dr. Leos was supposed to put in a referral for her for gynecology but she is never heard from anybody. At our last appointment 12/14/2022 - we placed a referral for MEDICAL DOCTOR MD/MEDICAL DIRECTOR. Today, patient states that she still has not heard from them. Patient shares today that she has a new love interest and is feeling pain with vaginal insertion. Patient reports that this has been going on for over a year accompanied by frequent urinary tract infections and leakage of urine. Patient also reports feeling like she is not completely able to empty her bladder along with feeling of pelvic heaviness. Patient denies any bleeding or trauma to the area. A&P: Concern for cystocele. Referral placed today for MEDICAL DOCTOR MD/MEDICAL DIRECTOR and spoke with scheduling staff to expedite case. Frequent UTI 01/02/2023 Assessment & Plan (03/21/2023 5:30 PM [facility]): HPI: Condition is improving, but not at goal. Patient states she was seen at outside facility in which she would not disclose on 03/08/23 and was given Augmentin for bladder infection. Patient states that when she went to ED on 03/09/2023 she was told that Augmentin is a contraindication due to her allergy to penicillins. Augmentin was held in the ER. Patient was then given with Macrobid x5 days based on reported symptoms - patient states she finished medication on 03/14/23. Today she is reporting vague symptoms of bladder discomfort like she always has but denies any dysuria, fevers, foul smell, or urgency. At last visit with me 01/02/23 - patient reported similar bladder symptoms going on for over a year accompanied by frequent urinary tract infections and leakage of urine. Patient also reported feeling like she is not completely able to empty her bladder along with feeling of pelvic heaviness. I referred her to MEDICAL DOCTOR MD/MEDICAL DIRECTOR and patient was supposed to see Dr. Michael Medrano, MEDICAL DOCTOR MD/MEDICAL DIRECTOR but states she never went to appointment. A&P: Urine analysis obtained in office today showing moderate blood, small leukocytes, and negative nitrates. Specimen sent off for culture. We will follow up pending culture results. Patient to call office if symptoms worsen or do not improve. Recommend following up with MEDICAL DOCTOR MD/MEDICAL DIRECTOR. Assessment & Plan (01/02/2023 10:38 AM [facility]): HPI: Condition is not at/near goal. Patient reports that she is a lways had vaginal pain for as long she can remember. Patient states that Dr. Leos was supposed to put in a referral for her for gynecology but she is never heard from anybody. At our last appointment 12/14/2022 - we placed a referral for MEDICAL DOCTOR MD/MEDICAL DIRECTOR. Today, patient states that she still has not heard from them. Patient shares today that she has a new love interest and is feeling pain with vaginal insertion. Patient reports that this has been going on for over a year accompanied by frequent urinary tract infections and leakage of urine. Patient also reports feeling like she is not completely able to empty her bladder along with feeling of pelvic heaviness. Patient denies any bleeding or trauma to the area. A&P: Concern for cystocele. Referral placed today for MEDICAL DOCTOR MD/MEDICAL DIRECTOR and spoke with scheduling staff to expedite case. Frequent urination 01/02/2023 Assessment & Plan (01/02/2023 10:39 AM [facility]): HPI: Condition is not at/near goal. Patient reports that she is a lways had vaginal pain for as long she can remember. Patient states that Dr. Leos was supposed to put in a referral for her for gynecology but she is never heard from anybody. At our last appointment 12/14/2022 - we placed a referral for MEDICAL DOCTOR MD/MEDICAL DIRECTOR. Today, patient states that she still has not heard from them. Patient shares today that she has a new love interest and is feeling pain with vaginal insertion. Patient reports that this has been going on for over a year accompanied by frequent urinary tract infections and leakage of urine. Patient also reports feeling like she is not completely able to empty her bladder along with feeling of pelvic heaviness. Patient denies any bleeding or trauma to the area. A&P: Concern for cystocele. Referral placed today for MEDICAL DOCTOR MD/MEDICAL DIRECTOR and spoke with scheduling staff to expedite case. Incomplete bladder emptying 01/02/2023 Assessment & Plan (01/02/2023 10:39 AM [facility]): HPI: Condition is not at/near goal. Patient reports that she is a lways had vaginal pain for as long she can remember. Patient states that Dr. Leos was supposed to put in a referral for her for gynecology but she is never heard from anybody. At our last appointment 12/14/2022 - we placed a referral for MEDICAL DOCTOR MD/MEDICAL DIRECTOR. Today, patient states that she still has not heard from them. Patient shares today that she has a new love interest and is feeling pain with vaginal insertion. Patient reports that this has been going on for over a year accompanied by frequent urinary tract infections and leakage of urine. Patient also reports feeling like she is not completely able to empty her bladder along with feeling of pelvic heaviness. Patient denies any bleeding or trauma to the area. A&P: Concern for cystocele. Referral placed today for MEDICAL DOCTOR MD/MEDICAL DIRECTOR and spoke with scheduling staff to expedite case. Class 1 obesity with serious comorbidity and body mass index (BMI) of 34.0 to 34.9 in adult 12/14/2022 Assessment & Plan (03/21/2023 3:08 PM [facility]): HPI: Condition is improving, but not at goal goal BMI <30 A&P: Healthy, high-protein, lower carbohydrate, lower fat lifestyle and exercise for 150min/week recommended. Assessment & Plan (01/02/2023 9:37 AM [facility]): HPI: Condition is improving, but not at goal goal BMI <30 A&P: Healthy, high-protein, lower carbohydrate, lower fat lifestyle and exercise for 150min/week recommended. Assessment & Plan (12/14/2022 1:35 PM CDT): HPI: Condition is not at/near goal goal BMI <30 A&P: Healthy, high-protein, lower carbohydrate, lower fat lifestyle and exercise for 150min/week recommended Recommend tracking everything you put in your mouth on an kierra like [employer] Lower carb substitutions: Mark carries a zero net carb bread If you are looking for whole potatoes, like to use in soup or new potato shape/flavor, radishes are a great replacement If you are looking for mashed potatoes, riced cauliflower in the frozen bag section are a great replacement For pasta, try using zucchini noodles, lay them out on a cookie sheet and pat dry with a tea towel to try to remove as much moisture as possible. Heat your pasta sauce on the stove and put the noodles in for 30-45 seconds. If you leave them in much longer they will become mushy Emigrant and/or coconut flour instead of regular flour For pizza dough, try fathead pizza dough recipe online. To get a crispy crust, bake on one side for 8-12 min, then flip over and bake on the other side for 8-12 min, then put toppings on and bake until the cheese on top of pizza melts chaffles recipe online For ice cream, try the brand Enlightened To replace coffee creamer and make it low carb, use heavy creamer with sugar free Torani sweetener For chips, try Whisps or pork rinds For yogurt, try Two Good japanese yogurt Use Td for recipe ideas. Type in low carb... Hand Measurements: A fist or cupped hand = 1 cup 1 cup = 1 -2 servings of fruit juice 1 oz. of cold cereal 2 oz. of cooked cereal, rice or pasta 8 oz. of milk or yogurt A thumb = 1 oz. of cheese Consuming low-fat cheese helps you meet the required servings from the milk, yogurt and cheese group. 1 oz. of low-fat cheese counts as 8 oz. of milk or yogurt. Handful = 1-2 oz. of snack food Thumb tip = 1 teaspoon Keep high-fat foods, such as peanut butter and mayonnaise, at a minimum. One teaspoon is equal to the end of your thumb, from the knuckle up. Three teaspoons equals 1 tablespoon. Palm = 3 oz. of meat Choose lean poultry, fish, shellfish and beef. One palm size portion equals 3 oz. for an adult and 1 -2 oz. for a child under 5. 1 tennis ball or a fist= 1/2 cup of fruit and vegetables Healthy diets include a variety of colorful fruits and vegetables every day. The secret to serving size is in your hand. Snacking can add up. Remember, 1 handful equals 1 oz. of nuts and small candies. For chips and pretzels, 2 handfuls equals 1 oz. Because hand sizes vary, compare your fist size to an actual measuring cup. Vaginal pain 12/14/2022 Assessment & Plan (01/02/2023 10:37 AM [facility]): HPI: Condition is not at/near goal. Patient reports that she is a lways had vaginal pain for as long she can remember. Patient states that Dr. Leos was supposed to put in a referral for her for gynecology but she is never heard from anybody. At our last appointment 12/14/2022 - we placed a referral for MEDICAL DOCTOR MD/MEDICAL DIRECTOR. Today, patient states that she still has not heard from them. Patient shares today that she has a new love interest and is feeling pain with vaginal insertion. Patient reports that this has been going on for over a year accompanied by frequent urinary tract infections and leakage of urine. Patient also reports feeling like she is not completely able to empty her bladder along with feeling of pelvic heaviness. Patient denies any bleeding or trauma to the area. A&P: Concern for cystocele. Referral placed today for MEDICAL DOCTOR MD/MEDICAL DIRECTOR and spoke with scheduling staff to expedite case. Assessment & Plan (12/14/2022 1:52 PM CDT): HPI: Condition is not at/near goal. Patient reports that she is a lways had vaginal pain for as long she can remember. Patient states that Dr. Leos was supposed to put in a referral for her for gynecology but she is never heard from anybody. Patient requests referral today for gynecology. 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 of opiate analgesic 03/15 Radiculopathy, lumbar region 03/31/2022 Anemia, unspecified 02/12/2022 Unspecified osteoarthritis, unspecified site 02/2022 Personal history of pneumonia (recurrent) 2022 Personal history of nicotine dependence 02/12/19 23 Hepatic failure, unspecified without coma 2022 Hypothyroidism 02/12/2022 Migraine, unspecified, not i ntractable, without status migrainosus 02/12/2021 Fibromyalgia 02/12/2021 Shoulder impingement syndrome, left 04/14/2019 Assessment & Plan (04/14/2019 3:07 PM [facility]): I discussed conservative versus operative treatment with the patient. I recommend patient participate in activity modification. Patient has failed previous conservative therapy in the form of bilateral cortisone injections. I will order an MRI of the patient's left shoulder to further assess the patient's pain generator. CKD (chronic kidney disease) stage 3, GFR 30-59 ml/min 03/04/2019 Assessment & Plan (12/14/2022 1:47 PM CDT): Images from the original note were not included. HPI: Condition is not at/near goal. GFR mild to moderately decreased at 50 A&P: Referral for nephrology placed today. Bipolar disorder, unspecified 08/26/2018 Assessment & Plan (12/14/2022 1:44 PM CDT): Patient reiterated no suicidal thoughts at this time; take medication as directed; contact 911 and go to the ER if becomes suicidal; discussed side effects of medication with patient; encouraged healthy diet and exericise; encouraged patient to see a counselor. HPI: Condition is stable A&P: Discussed/ordered labs, encouraged healthy, low carbohydrate lifestyle and at least 150min/week of exercise, continue on lamotrigine 150 mg nightly Assessment & Plan (08/26/2018 1:06 PM CDT): Refill of klonopin to [facility] [phone] Benign paroxysmal positional vertigo due to bilateral vestibular disorder 08/26/2018 Assessment & Plan (08/26/2018 1:05 PM CDT): antivert script new start Chronic constipation 08/26/2018 Assessment & Plan (12/14/2022 1:45 PM CDT): HPI: Condition is stable A&P: For the constipation - push fluids, for the first 3 days may use Miralax 1 capful three times a day x 3 days along with 1 Ex-Lax chew daily x 3 days, then decrease Miralax to 2-3 times a week. Maintain a high fiber diet with plenty of roughage, and 6-8 large glasses of water daily to avoid constipation in the future. Timing elimination to occur after meals, or after a hot drink, can also improve the situation joint terminal attack controller. Assessment & Plan (08/26/2018 1:04 PM CDT): Refer to [facility] Mild episode of recurrent major depressive disor donna 08/26/2018 Overview (09/03/2020): Last Assessment & Plan: Refill of klonopin to [facility] [phone] Assessment & Plan (01/02/2023 9:39 AM [facility]): Patient reiterated no suicidal thoughts at this time; take medication as directed; contact 911 and go to the ER if becomes suicidal; discussed side effects of medication with patient; encouraged healthy diet and exericise; encouraged patient to see a counselor. HPI: Condition is stable A&P: Discussed/ordered labs, encouraged healthy, low carbohydrate lifestyle and at least 150min/week of exercise, continue on buspirone 15 mg twice daily and Celexa 40 mg tablet nightly Assessment & Plan (12/14/2022 1:48 PM CDT): Patient reiterated no suicidal thoughts at this time; take medication as directed; contact 911 and go to the ER if becomes suicidal; discussed side effects of medication with patient; encouraged healthy diet and exericise; encouraged patient to see a counselor. HPI: Condition is stable A&P: Discussed/ordered labs, encouraged healthy, low carbohydrate lifestyle and at least 150min/week of exercise, continue on buspirone 15 mg twice daily and Celexa 40 mg tablet nightly B12 deficiency 06/07/2017 Assessment & Plan (12/14/2022 1:35 PM CDT): HPI: Condition is unknown, no data to review at this time to make an evaluation A&P: Vitamin B12 ordered with labs. SUNITA (generalized anxiety disorder) 09/15/2015 Overview (05/15/2018): By: Juan Valerio MD; Assessment & Plan (01/02/2023 9:38 AM [facility]): Patient reiterated no suicidal thoughts at this time; take medication as directed; contact 911 and go to the ER if becomes suicidal; discussed side effects of medication with patient; encouraged healthy diet and exericise; encouraged patient to see a counselor. HPI: Condition is stable A&P: Discussed/ordered labs, encouraged healthy, low carbohydrate lifestyle and at least 150min/week of exercise, continue on buspirone 15 mg twice daily and Celexa 40 mg tablet nightly Assessment & Plan (12/14/2022 1:48 PM CDT): Patient reiterated no suicidal thoughts at this time; take medication as directed; contact 911 and go to the ER if becomes suicidal; discussed side effects of medication with patient; encouraged healthy diet and exericise; encouraged patient to see a counselor. HPI: Condition is stable A&P: Discussed/ordered labs, encouraged healthy, low carbohydrate lifestyle and at least 150min/week of exercise, continue on buspirone 15 mg twice daily and Celexa 40 mg tablet nightly Essential (primary) hypertension 09/15/2015 Overview (05/15/2018): By: Juan Valerio MD; Assessment & Plan (03/21/2023 5:47 PM [facility]): HPI: Condition is not at/near goal. BP 140/80 in office today. Per last visit on 01/02/2023, patient has been on Losartan 100mg tablet daily. Today she states she feels like that is too much for her at one time and has been occasionally breaking it in half. She does report inconsistency with taking the losartan depending on how she feels. Patient very concerned that her BP is dropping too low and that its been causing her dizziness so she decided she would split the pill in half and take 50mg as needed. Patient reports that she was hoping to come off blood pressure medication completely. A&P: At recent ER visit 03/09/23 - BPs 165/64, 225/126, 191/111, and 157/65. Discussed with patient that blood pressures have been dangerously elevated and explained risk of cardiovascular event including heart attack and stroke. Also discussed importance of taking BP medication daily and not as needed. Will order Losartan 50mg tablets to be taken twice daily (100mg total per day). Recommend patient to monitor blood pressures at home. Will have patient come in 1 month for nurse visit for BP check and medication adjustment if needed. Please let us know if you have any dizziness, headache, confusion, blurry vision, lightheadedness, N/V, or syncopal episodes. Call 911 if blood pressure is greater than or equal to 180/120 or you have severe headache, chest pain, shortness of breath, or symptoms of stroke. Assessment & Plan (01/02/2023 9:38 AM [facility]): HPI: Condition is stable A&P: Discussed/ordered labs, encouraged healthy, low carbohydrate lifestyle and at least 150min/week of exercise, continue on losartan 100 mg tablet daily Assessment & Plan (12/14/2022 1:49 PM CDT): HPI: Condition is stable A&P: Discussed/ordered labs, encouraged healthy, low carbohydrate lifestyle and at least 150min/week of exercise, continue on losartan 100 mg tablet daily Assessment & Plan (08/26/2018 1:02 PM CDT): Increase losartan to 100mg Insomnia 09/15/2015 Overview (05/15/2018): By: Hector SINGH, TALIA, Gabe; Assessment & Plan (01/02/2023 9:38 AM [facility]): HPI: Condition is stable A&P: Discussed/ordered labs, encouraged healthy, low carbohydrate lifestyle and at least 150min/week of exercise, continue on trazodone 150 mg tablet nightly Assessment & Plan (12/14/2022 1:41 PM CDT): HPI: Condition is stable A&P: Discussed/ordered labs, encouraged healthy, low carbohydrate lifestyle and at least 150min/week of exercise, continue on trazodone 150 mg tablet nightly Rheumatoid arthritis 09/15/2015 Overview (05/15/2018): By: Juan Valerio MD; Assessment & Plan (12/14/2022 1:40 PM CDT): HPI: Condition is stable. A&P: Discussed/ordered labs, encouraged healthy, low carbohydrate lifestyle and at least 150min/week of exercise, continue on meloxicam 15 mg tablet as needed for pain. Referral placed to Rheumatology. Vitamin D deficiency 09/15/2015 Assessment & Plan (01/02/2023 10:41 AM [facility]): HPI: Condition is stable A&P: Discussed/ordered labs, encouraged healthy, low carbohydrate lifestyle and at least 150min/week of exercise. Patient to stop taking vitamin D3 5000 units daily and begin taking vitamin D3 29990 units once weekly. Assessment & Plan (12/14/2022 10:23 AM CDT): HPI: Condition is stable A&P: Discussed/ordered labs, encouraged healthy, low carbohydrate lifestyle and at least 150min/week of exercise, continue on vitamin D3 5000 units daily. GERD (gastroesophageal reflux disease) 2 Assessment & Plan (01/02/2023 9:38 AM [facility]): HPI: Condition is stable Continue on current meds omeprazole 20 mg capsule daily, encouraged healthy diet and exercise. Avoid trigger foods including: carbonated beverages, caffeine, spicy, fried foods, tomatoes, cucumbers, mint, and acidic fruits/juices like orange/lemon/grapefruit. Avoid eating/drinking anything for at least 2 hours before bed. Sleep with bed propped. Discussed that long-term use of proton pump inhibitors (PPIs) can cause low vitamin B12, low magnesium, diarrhea, C diff, osteoporosis-weakening of bones and kidney problems, pt would like to remain on medication at this time. Assessment & Plan (12/14/2022 1:44 PM CDT): HPI: Condition is stable Continue on current meds omeprazole 20 mg capsule daily, encouraged healthy diet and exercise. Avoid trigger foods including: carbonated beverages, caffeine, spicy, fried foods, tomatoes, cucumbers, mint, and acidic fruits/juices like orange/lemon/grapefruit. Avoid eating/drinking anything for at least 2 hours before bed. Sleep with bed propped. Discussed that long-term use of proton pump inhibitors (PPIs) can cause low vitamin B12, low magnesium, diarrhea, C diff, osteoporosis-weakening of bones and kidney problems, pt would like to remain on medication at this time. Assessment & Plan (07/24/2019 11:46 AM CDT): Use Carafate p.r.n. only. Continue her omeprazole 40 mg a day. Refer to a GI Dr Carpio in [place] Assessment & Plan (06/27/2019 11:33 AM CDT): add Carafate ADD famotidine. Hyperlipidemia 01/22/2012 Overview (05/15/2018): By: Juan Valerio MD; Assessment & Plan (01/02/2023 10:42 AM [facility]): HPI: Condition is not at/near goal. Patient reports that she was not fasting when she got all of her other blood work done. Patient reports that she plans to get her lipid panel done sometime this week. A&P: Discussed/ordered labs, encouraged healthy, low carbohydrate lifestyle and at least 150min/week of exercise. Patient to continue working on low-fat diet and exercise and we will reassess once lipid panels resulted. Hypokalemia 01/22/2012 CHF (congestive heart failure) 10/08/2008 Resolved Problems Problem Noted Date Diagnosed Date Resolved Date Rotator cuff tear arthropath y of both shoulders 10/05/2022 12/14/2022 Other constipation 02/12/2022 Gastro-esophageal reflux dis ease without esophagitis 02/12/2022 03/21/2023 Essential (primary) hypertension 02/12/2022 03/21/2023 Bipolar disorder, unspecified 02/12/2022 03/21/2023 Generalized anxiety disorder 02/12/2022 03/21/2023 Chest pain 11/22/2021 12/14/2022 Chest pain, unspecified type 11/20/2021 12/14/2022 At risk for obstructive sleep apnea 11/10/2021 12/14/2022 Radiculopathy of thoracolumbar region 10/13/2021 12/14/2022 Nontraumatic complete tear o f right rotator cuff 09/05/2021 12/14/2022 Overview (09/05/2021): Added automatically from request for surgery [id number] Irritable bowel syndrome with constipation 07/24/2019 12/14/2022 Assessment & Plan (07/24/2019 11:45 AM CDT): DC Amitiza 24 mcg Start Amitiza 8 mcg. Right foot pain 04/14/2019 12/14/2022 Assessment & Plan (04/14/2019 3:10 PM [facility]): I will refer the patient to hospital cleaning specialist, Dr. Howard. Left hand pain 04/14/2019 12/14/2022 Assessment & Plan (04/14/2019 3:10 PM [facility]): I will refer the patient to hand specialist, Dr. Galan Acute kidney injury 02/16/2019 12/15/19 23 Medication overdose 02/16/2019 12/15/19 23 Abnormal mammogram of both breasts 08/26/2018 12/14/2022 Assessment & Plan (08/26/2018 12:59 PM CDT): Diagnostic mammogram Other spondylosis with radic ulopathy, lumbar region 08/26/2018 12/14/2022 Assessment & Plan (08/26/2018 1:01 PM CDT): Refer to dr brown pain management. 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 12/14/2022 Overview (05/15/2018): By: Hector SINGH CNP, Christopher; Bipolar disorder, in partial remission, most recent episode mixed 09/15/2015 12/14/2022 Overview (05/15/2018): By: Hector SINGH CNP, Christopher; Hypothyroidism 09/15/2015 03/21/2023 Overview (05/15/2018): By: Hector SINGH CNP, Christopher; Major depressive disorder, single episode 09/15/2015 12/14/2022 Overview (05/15/2018): By: Juan Valerio MD; 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 12/14/2022 Overview (05/15/2018): By: Juan Valerio MD; Assessment & Plan (03/04/2019 11:22 AM [facility]): Increase spironolactone 25mg bid Dorsalgia 09/15/2015 12/14/2022 Overview (03/16/2020): By: Hector SINGH CNP, Christopher; Pain in joint 09/15/2015 01/18/2022 Overview (03/16/2020): By: Hector SINGH CNP, Christopher; Abnormality of gait 09/15/2015 01/19/20 Overview (09/03/2020): By: Hector SINGH CNP, Christopher; Anemia 01/23/2012 12/14/2022 Rhabdomyolysis 01/23/2012 12/14/2022 Elevated liver enzymes 01/22/201212/14 Prolonged QT interval 01/22/20122022 Sinusitis, acute 01/22/2012 01/18/2022 Prediabetes 12/02/2009 01/02/2023 Assessment & Plan (12/14/2022 1:39 PM CDT): HPI: Condition is unknown, no data to review at this time to make an evaluation. Patient reports that she is never been told that she is got diabetes mellitus. Patient also reports that she is never been treated for diabetes. Patient states that when she was at [facility] they told her that her A1C was >12 but that she followed up with Dr. Leos and her A1C there was normal. A&P: Discussed/ordered labs, encouraged healthy, low carbohydrate lifestyle and at least 150min/week of exercise. A1C ordered today to start DM management. Will reassess in 1 month at next scheduled visit. Menopausal and postmenopausal disorder 12/02/2009 12/14/2022 Acute cystitis without hematuria 12/14/2022 Encounters Date Type Department Care Team Description 10/07/2024 2:30 PM CDT Office Visit [facility] [address] [facility] [address] [place] [address] Daryl Martinez MD Rotator cuff tear arthropathy, left (Primary Dx) 09/24/2024 2:15 PM CDT Office Visit [facility] Medicine [address] [phone] Juan Joy MD Trochanteric bursitis of right hip (Primary Dx); Trochanteric bursitis of left hip 08/27/2024 2:15 PM CDT - 08/27/2024 11:59 PM CDT Hospital Encounter [facility] MRI [address] [place] [id number] Arthritis of shoulder region, left; Left shoulder pain, unspecified chronicity Discharge Disposition: Discharge to home or self care 08/27/2024 2:06 PM CDT - 08/27/2024 11:59 PM CDT Hospital Encounter [facility] MRI [address] [place] [id number] Primary osteoarthritis of right shoulder; Right shoulder pain, unspecified chronicity Discharge Disposition: Discharge to home or self care 2024 Telephone [facility] [address] [place] [address] [address] [place] [address] Juan Joy MD Scheduling Appointments 08/18/2024 1:00 PM CDT Office Visit [facility] Medicine [address] [place] [address] [address] [place] [address] Juan Joy MD Nontraumatic complete tear of right rotator cuff (Primary Dx); Nontraumatic complete tear of left rotator cuff; Arthritis of left shoulder region; Primary osteoarthritis of right shoulder 08/18/2024 12:55 PM CDT - 08/18/2024 11:59 PM CDT Hospital Encounter [facility] [address] [place] [address] Nontraumatic complete tear of left rotator cuff; Nontraumatic complete tear of right rotator cuff Discharge Disposition: Discharge to home or self care from Last 3 Months Immunizations Immunization Administration Dates Next Due Influenza, Unspecified 12/14/2022(Deferr ed: Patient decision),01/18/2022(Deferred: Patient Refused),12/13/2020(Deferred: Patient Refused),10/14/2019(Deferred: Patient decision) Pneumococcal Conjugate PCV 13 06/07/2017 Pneumococcal Polysaccharide PPV23 12/09/2019 Tdap 06/07/2021,09/21/2008 Tetanus Toxoid, Unspecified 09/21/2008 ZOSTER Recombinant 10/19/2017 Surgical History Surgery Date Site/Laterality Comments HYSTERECTOMY at 31 years of age BREAST LUMPECTOMY 02/12/1963 - 02/12/1964 Right benign APPENDECTOMY CARPAL TUNNEL RELEASE Right VAGINAL DELIVERY x 3 w/ epidural FLUORO GUIDED ASPIRATION OR INJECTION LARGE JOINT BILATERAL 01/22/2023 Bilateral Medical History Medical History Date Comments Arthritis OA Bilat knees, rt shoulders Depression Vitamin B 12 deficiency Vitamin D deficiency Anxiety GERD (gastroesophageal reflux disease) Hypertension Arthropathy Hypothyroidism BPV (benign positional vertigo) Hyperlipidemia Elevated liver enzymes Rheumatoid arthritis (HCC) Fibromyalgia Bipolar disorder, in partial remission, most recent episode mixed (HCC) 09/15/2015 By: Hector SINGH, ROSITA Adams, Gabe; Prediabetes 12/02/2009 Family History Medical History Relation Name Comments No Known Problems Brother No Known Problems Daughter Cancer Father Kidney's. lung, stomach Cancer Father's Sister No Known Problems Maternal Grandfather No Known Problems Maternal Grandmother Mental illness Mother No Known Problems Paternal Grandfather No Known Problems Paternal Grandmother No Known Problems Son 1 No Known Problems Son 2 Anesthesia problems Neg Hx Malig Hypertension Neg Hx Malig Hyperthermia Neg Hx Pseudochol deficiency Neg Hx Relation Name Status Comments Brother Alive Daughter Alive Father Father's Sister Maternal Grandfather Maternal Grandmother Mother Paternal Grandfather Paternal Grandmother Son 1 Alive Son 2 Alive Social History Tobacco Use Types Packs/Day Years Used Date Smoking Tobacco: Former Cigarettes 1 12 1974 Smokeless Tobacco: Never Tobacco Cessation:Counseling Given: Not Answered Alcohol Use Standard Drinks/Week Comments Not Currently [...] any clubs o r organizations such as hinduism groups, unions, fraternal or athletic groups, or [...] staff should administer the PHQ-9) 0 12/14/2022 [facility] - Occupational Stress Questionnaire Answer Date Recorded [...] on file Legal Sex Female 9:01 PM [facility] Gender Identity Not on file Sexual Orientation Not on file Occupation Industry Job Start Date Job End Date reitred Not on file Not on file Not on file Obstetrics History Last Filed Vital Signs Vital Sign Reading Time Taken Comments Blood Pressure 140/80 03/20/2023 3:15 PM [facility] Pulse 78 03/20/2023 3:15 PM [facility] Temperature 36.1 C (97 F) 03/20/2023 3:15 PM [facility] Respiratory Rate 18 03/20/2023 3:15 PM [facility] Oxygen Saturation 97% 03/20/2023 3:15 PM [facility] Inhaled Oxygen Concentration - - Weight 83.5 kg (184 lb) 10/07/2024 2:17 PM CDT Height 162.6 cm (5' 4) 10/07/2024 2:17 PM CDT Body Mass Index 31.58 10/07/2024 2:17 PM CDT Plan of Treatment Health Maintenance Due Date Last Done Comments Osteoporosis Screening-Bone Density Scan 1945 Hepatitis B Screening 1963 Zoster Vaccine (2 of 2) 12/14/2017 10/19/2017 Well Visit 65+ 06/21/2022 06/21/2021, 12/09/2019 Depression Screening 12/15/2023 12/14/2022, 11/20/2021, 06/21/2021, Additional history exists Fall Risk Assessment 12/28/2023 12/27/2022, 12/14/2022, 06/21/2021, Additional history exists Influenza Vaccine (#1) 2024 DTaP/Tdap/Td Vaccine (3 - Td or Tdap) 06/08/2031 06/07/2021, 09/21/2008 Colon Cancer Screening-CT Colonography Discontinued 10/23/2016 Colon Cancer Screening-Colonoscopy Discontinued 10/23/2016 Colon Cancer Screening-DNA Stool Discontinued 10/24/19 Colon Cancer Screening-FIT Discontinued 10/23/2016 Colon Cancer Screening-FOBT Discontinued 10/23/2016 Colon Cancer Screening-Sigmoidoscopy Discontinued 10/23/2016 Colorectal Cancer Screening Discontinued Breast Cancer Screening-Mammogram Discontinued 019, 09/06/2018 Hepatitis C Screening Completed 12/29/2022 Pneumococcal vaccine 65+ Completed 024, 12/09/2019, 06/07/2017 Procedures Procedure Name Priority Date/Time Associated Diagnosis Comments MA ARTHROCENTESIS ASPIR&/INJ MAJOR JT/BURSA W/O US Routine 09/24/2024 2:15 PM CDT Trochanteric bursitis of right hip Trochanteric bursitis of left hip MRI SHOULDER LEFT WO CONTRAST Schedule Routine, Read Routine (OP Routine) 08/27/2024 3:25 PM CDT Arthritis of shoulder region, left Left shoulder pain, unspecified chronicity MRI SHOULDER RIGHT WO CONTRAST Schedule Routine, Read Routine (OP Routine) 08/27/2024 3:25 PM CDT Primary osteoarthritis of right shoulder Right shoulder pain, unspecified chronicity XR SHOULDER RIGHT 2 OR MORE VIEWS Schedule Routine, Read Routine (OP Routine) 08/18/2024 1:01 PM CDT Nontraumatic complete tear of right rotator cuff XR SHOULDER LEFT 2 OR MORE VIEWS Schedule Routine, Read Routine (OP Routine) 08/18/2024 1:01 PM CDT Nontraumatic complete tear of left rotator cuff HEPATITIS C RNA, QUANTITATIVE, PCR Routine 12/29/2022 8:10 AM [facility] Encounter for hepatitis C screening test for low risk patient SCREENING MAMMOGRAM BILATERAL W GIUSEPPE Schedule Routine, Read Routine (OP Routine) 09/06/2018 COLONOSCOPY Routine 10/23/2016 from Last 3 Months or Most Recently Relevant to Health Maintenance Results * MA ARTHROCENTESIS ASPIR&/INJ MAJOR JT/BURSA W/O US (09/24/2024 2:15 PM CDT) Narrative Juan Joy MD - 09/24/2024 2:15 PM CDT Juan Joy MD 09/28/2024 7:20 AM Large Joint (Hip, Knee, Shoulder) Injection: bilateral greater trochanteric bursa Performed by: Juan Joy MD Authorized by: Juan Joy MD Procedure Details: Location: Hip Site: Bilateral greater trochanteric bursa Medications Right Large Joint Injection: 1 mL lidocaine 10 mg/mL (1 %); 40 mg methylPREDNISolone acetate 40 mg/mL Medications Left Large Joint Injection: 1 mL lidocaine 10 mg/mL (1 %); 40 mg methylPREDNISolone acetate 40 mg/mL Juan Joy MD IN CLINIC[facility]BEDSIDE [facility] Final Result * MRI Shoulder Left WO Contrast (08/27/2024 3:25 PM CDT) Anatomical Region Laterality Modality Upper Extremities Left Magnetic Reson ance 08/27/2024 6:53 PM CDT Narrative 08/27/2024 6:58 PM CDT EXAM DESCRIPTION: MRI SHOULDER LEFT WO CONTRAST REASON FOR STUDY: arthritis of shoulder region, left TECHNIQUE: Multiplanar, multisequence MRI of the left shoulder was performed without contrast. COMPARISON: Radiographs 08/18/2024 FINDINGS: There is a type 1 acromion. The coracoacromial ligament is thin. There is mild acromioclavicular joint osteoarthritis. The subacromial subdeltoid bursa communicates with the joint space. Severe supraspinatus and moderate to severe infraspinatus chronic fatty atrophy. Mild insertional subscapularis tendinosis. The biceps tendon is ruptured. Large 5.5 x 5 cm full-thickness tear of the supraspinatus and infraspinatus is present. Torn tendinopathic margins are retracted to the glenoid. The humeral head is subluxed superiorly. Marrow edema is present involving the acromion. On this non arthrographic evaluation, there is degenerative tearing of the superior glenoid labrum. The labrum below the equator is normal. Severe rotator cuff arthropathy. Large shoulder effusion is present with synovitis and decompression. There are no loose bodies. IMPRESSION: 1. Large 5.5 x 5 cm full-thickness tear of the left supraspinatus and infraspinatus with torn tendinopathic margins retracted to the glenoid. There is severe supraspinatus and moderate to severe infraspinatus chronic fatty atrophy. 2. Severe left rotator cuff arthropathy. 3. Mild left acromioclavicular joint osteoarthritis. 4. Large left shoulder effusion with synovitis and decompression into the subacromial subdeltoid bursa. 5. Ruptured left biceps tendon. THIS IS AN ELECTRONICALLY VERIFIED FINAL REPORT 08/27/2024 6:58 PM - Electronically signed by Michael Izaguirre M.D. T: Report ID: [id number] Reading Location: [id number] Procedure Note Michael Izaguirre MD - 08/27/2024 EXAM DESCRIPTION: MRI SHOULDER LEFT WO CONTRAST REASON FOR STUDY: arthritis of shoulder region, left TECHNIQUE: Multiplanar, multisequence MRI of the left shoulder wasperformed without contrast. COMPARISON: Radiographs 08/18/2024 FINDINGS: There is a type 1 acromion. The coracoacromial ligament is thin. There is mild acromioclavicular joint osteoarthritis. The subacromial subdeltoid bursa communicates with the joint space. Severe supraspinatus and moderate to severe infraspinatus chronic fatty atrophy. Mild insertional subscapularis tendinosis. The biceps tendon is ruptured. Large 5.5 x 5 cm full-thickness tear of the supraspinatus and infraspinatus is present. Torn tendinopathic margins are retracted to the glenoid. The humeral head is subluxed superiorly. Marrow edema ispresent involving the acromion. On this non arthrographic evaluation, there is degenerative tearing of the superior glenoid labrum. The labrum below the equator is normal. Severe rotator cuff arthropathy. Large shoulder effusion is present withsynovitis and decompression. There are no loose bodies. IMPRESSION: 1. Large 5.5 x 5 cm full-thickness tear of the left supraspinatus and infraspinatus with torn tendinopathic margins retracted to the glenoid.There is severe supraspinatus and moderate to severe infraspinatus chronic fatty atrophy. 2. Severe left rotator cuff arthropathy. 3. Mild left acromioclavicular joint osteoarthritis. 4. Large left shoulder effusion with synovitis and decompression intothe subacromial subdeltoid bursa. 5. Ruptured left biceps tendon. THIS IS AN ELECTRONICALLY VERIFIED FINAL REPORT 08/27/2024 6:58 PM - Electronically signed by Michael Izaguirre M.D. T: Report ID: [id number] Reading Location: [place] [address] [facility] IM MRI PROCEDURES Final R esult * MRI Shoulder Right WO Contrast (08/27/2024 3:25 PM CDT) Anatomical Region Laterality Modality Upper Extremities Right Magnetic Reson ance 08/27/2024 6:47 PM CDT Narrative 08/27/2024 6:53 PM CDT EXAM DESCRIPTION: MRI SHOULDER RIGHT WO CONTRAST REASON FOR STUDY: Chronic bilateral pain. osteoarthritis of right shoulder suspected TECHNIQUE: Multiplanar, multisequence MRI of the right shoulder was performed without contrast. COMPARISON: 08/18/2024 FINDINGS: There is a type 2 acromion. The coracoacromial ligament is thin with moderate-size subacromial spur formation. There is mild acromioclavicular joint osteoarthritis. There is mild subacromial subdeltoid bursitis. The rotator cuff muscle bulk is normal. Mild subscapularis tendinosis. The biceps tendon is located within the bicipital groove. Supraspinatus and infraspinatus cuff tendinosis is present. Superimposed 2.3 by 1.4 cm region of superimposed interstitial and partial-thickness articular sided tearing. On this non arthrographic evaluation, the bicipital anchor and superior glenoid labrum are intact. The labrum below the equator is normal. Deep partial-thickness cartilage loss of the superior glenoid is present. Matching partial-thickness cartilage loss of the humeral head. Small effusion is present. There are no loose bodies. IMPRESSION: 1. Right supraspinatus and infraspinatus cuff tendinosis with superimposed 2.3 x 1.4 cm region of interstitial and partial-thickness articular sided tearing. 2. Mild right acromioclavicular joint osteoarthritis with mild subacromial subdeltoid bursitis. 3. Mild right glenohumeral joint chondrosis with a small effusion. THIS IS AN ELECTRONICALLY VERIFIED FINAL REPORT 08/27/2024 6:53 PM - Electronically signed by Michael Izaguirre M.D. T: Report ID: [id number] Reading Location: [id number] Procedure Note Michael Izaguirre MD - 08/27/2024 EXAM DESCRIPTION: MRI SHOULDER RIGHT WO CONTRAST REASON FOR STUDY: Chronic bilateral pain. osteoarthritis of right shoulder suspected TECHNIQUE: Multiplanar, multisequence MRI of the right shoulder was performed without contrast. COMPARISON: 08/18/2024 FINDINGS: There is a type 2 acromion. The coracoacromial ligament is thinwith moderate-size subacromial spur formation. There is mild acromioclavicular joint osteoarthritis. There is mild subacromial subdeltoid bursitis. The rotator cuff muscle bulk is normal. Mild subscapularis tendinosis.The biceps tendon is located within the bicipital groove. Supraspinatus and infraspinatus cuff tendinosis is present. Superimposed 2.3 by 1.4 cmregion of superimposed interstitial and partial-thickness articular sidedtearing. On this non arthrographic evaluation, the bicipital anchor and superior glenoid labrum are intact. The labrum below the equator is normal. Deep partial-thickness cartilage loss of the superior glenoid is present.Matching partial-thickness cartilage loss of the humeral head. Small effusion is present. There are no loose bodies. IMPRESSION: 1. Right supraspinatus and infraspinatus cuff tendinosis withsuperimposed 2.3 x 1.4 cm region of interstitial and partial-thickness articular sided tearing. 2. Mild right acromioclavicular joint osteoarthritis with mildsubacromial subdeltoid bursitis. 3. Mild right glenohumeral joint chondrosis with a small effusion. THIS IS AN ELECTRONICALLY VERIFIED FINAL REPORT 08/27/2024 6:53 PM - Electronically signed by Michael Izaguirre M.D. T: Report ID: [id number] Reading Location: [id number] [facility] MRI PROCEDURES Final R esult * XR Shoulder Right 2 or More Views (08/18/2024 1:01 PM CDT) Anatomical Region Laterality Modality Upper Extremities, Shoulder Right Comp uted Radiography 2024 4:30 PM CDT Narrative 2024 4:31 PM CDT EXAM DESCRIPTION: 1. XR SHOULDER RIGHT 2 OR MORE VIEWS REASON FOR STUDY: pain General shoulder pain for 3 years, no injury, left worse than right FINDINGS: Three views submitted with comparison 08/30/2021. No acute fracture. Alignment is normal. Mild glenohumeral and acromioclavicular joint osteoarthritis. IMPRESSION: 1. Mild right glenohumeral and acromioclavicular joint osteoarthritis. THIS IS AN ELECTRONICALLY VERIFIED FINAL REPORT 2024 4:31 PM - Electronically signed by Michael Izaguirre M.D. T: Report ID: [id number] Reading Location: [id number] Procedure Note Michael Izaguirre MD - 2024 EXAM DESCRIPTION: 1. XR SHOULDER RIGHT 2 OR MORE VIEWS REASON FOR STUDY: pain General shoulder pain for 3 years, no injury, left worse than right FINDINGS: Three views submitted with comparison 08/30/2021. No acute fracture. Alignment is normal. Mild glenohumeral and acromioclavicular joint osteoarthritis. IMPRESSION: 1. Mild right glenohumeral and acromioclavicular joint osteoarthritis. THIS IS AN ELECTRONICALLY VERIFIED FINAL REPORT 2024 4:31 PM - Electronically signed by Michael Izaguirre M.D. T: Report ID: [id number] Reading Location: [id number] Juan Joy MD IMG XR PROCEDURES Arlette l Result * XR Shoulder Left 2 or More Views (08/18/2024 1:01 PM CDT) Anatomical Region Laterality Modality Upper Extremities, Shoulder Left Comp uted Radiography 2024 4:29 PM CDT Narrative 2024 4:31 PM CDT EXAM DESCRIPTION: 1. XR SHOULDER LEFT 2 OR MORE VIEWS REASON FOR STUDY: pain General shoulder pain for 3 years, no injury, left worse than right FINDINGS: Three views submitted with comparison 10/05/2022. No acute fracture. Superior subluxation of the humeral head with narrowing of the subacromial space. Severe left rotator cuff arthropathy. Mild acromioclavicular joint osteoarthritis. Arterial atherosclerosis is present. IMPRESSION: 1. Severe left rotator cuff arthropathy. THIS IS AN ELECTRONICALLY VERIFIED FINAL REPORT 2024 4:31 PM - Electronically signed by Michael Izaguirre M.D. T: Report ID: [id number] Reading Location: [id number] Procedure Note Michael Izaguirre MD - 2024 EXAM DESCRIPTION: 1. XR SHOULDER LEFT 2 OR MORE VIEWS REASON FOR STUDY: pain General shoulder pain for 3 years, no injury, left worse than right FINDINGS: Three views submitted with comparison 10/05/2022. No acute fracture. Superior subluxation of the humeral head withnarrowing of the subacromial space. Severe left rotator cuff arthropathy. Mild acromioclavicular joint osteoarthritis. Arterial atherosclerosis ispresent. IMPRESSION: 1. Severe left rotator cuff arthropathy. THIS IS AN ELECTRONICALLY VERIFIED FINAL REPORT 2024 4:31 PM - Electronically signed by Michael Izaguirre M.D. T: Report ID: [id number] Reading Location: [id number] Juan Joy MD IMG XR PROCEDURES Arlette l Result * Hepatitis C (HCV) RNA PCR, quantitative Blood (12/29/2022 8:10 AM [facility]IV[facility]) HCV RNA result Not Detected [facility] Comment: The quantifiable range of this assay is 15 IU/mL to 100,000,000 IU/mL (1.18 log IU/mL to 8.00 log IU/mL). Testing was performed by the [facility] HCV Test ([employer] Testing performed at [facility] Current Interpretive Data was last revised on 2020 Testing performed by: [facility], [address] [place]., [address] Blood 12/29/2022 8:10 AM [facility] 12/29/2022 4:09 PM [facility] us Laura Pham INSTRUCTOR TECHNICAL TRAINING LAB MICROBIOLOGY - GENERAL OR DERABLES Final Result [facility] [address] [facility] Department [place] [address] * Screening Mammogram Bilateral W Giuseppe (09/06/2018) Anatomical Region Laterality Modality Breast Bilateral Mammography Narrative 09/06/2018 Wnl Historical Lisandra AYERS MAMMO PROCEDURES Arlette l Result * COLONOSCOPY (10/23/2016) Scribed Colonoscopy Normal Historical Provider HEALTH MAINTENANCE Final Result from Last 3 Months or Most Recently Relevant to Health Maintenance Insurance MEDICARE AET SENIOR SUPPLEMENT MEDICARE AETNA SENIOR SUPPLEMENT MEDICARE AETNA SENIOR SUPPLEMENT MEDICARE AETNA SENIOR SUPPLEMENT MEDICARE AETNA SENIOR SUPPLEMENT Advance Directives For more information, please contact: [phone] * Full Code (Latest Code Status on File) Date Activated Date Inactivated Comments 11/21/2021 12:25 AM 11/22/2021 9:00 PM Care Teams Brake Lining Driller Relationship Specialty Start Date End Date Jaylin Mackey DO [address] [place] [address] PCP - General Family Medicine 08/18/24 David Chiang, DPM Referring Physician Podiatry 12/09/19
--- OUTSIDE RECORDS SUMMARY | 2024-10-08 15:32 | XMS_ITS | Encounter Summary ---
Author Organization [facility] Address [facility] [place] [address] Care Team Providers Care Sales Representative Printing Name Role Phone David Leos MD Primary Care Provider [phone] None, Provider Primary Care Provider Solange Rowe DO Primary Care Provider [phone] None, Provider Primary Care Provider Earle sunshine Encounter Details Date Type Department Care Team (Late st Contact Info) Description 10/17/2017 Hosp Visit [facility] [place]patient [place] [address] Angela Lloyd, PT [place], [place] [address] Social History Tobacco Use Types Packs/Day Years [...] as of this encounter Plan of Treatment Not on file documented as of this encounter Visit Diagnoses Not on filedocumented in this encounter Additional Health Concerns Infection Onset Date Last Indicated Resolved Time COVID-19 Rule Out 04/03/2023 04/03/2023 04/03/2023 2:38 PM SHIRRER COVID-19 Confirmed 04/03/2023 04/03/2023 03/16/202 4 12:32 AM CDT documented as of this encounter Care Teams Sales Representative Printing Relationship Specialty Start Date End Date David Leos MD PCP - General FAMILY PRACTICE 08/01/17 03/28/23 None, Provider, PCP - General UNKNOWN PHYSICIAN SPECIALTY 03/29/23 05/27/23 [place] [address] [place] [phone] PCP - General INTERNAL MEDICINE 05/28/23 01/13/24 None, ProviderMD PCP - General UNKNOWN PHYSICIAN SPECIALTY 01/14/24 documented as of this encounter
--- OUTSIDE RECORDS SUMMARY | 2024-10-08 15:32 | XMS_ITS | Encounter Summary ---
Author Organization [facility] Address [facility] [place] [address] Care Team Providers Care Sander Operator Name Role Phone David Leos MD Primary Care Provider [phone] None, Provider Primary Care Provider Solange Rowe DO Primary Care Provider [phone] None, Provider Primary Care Provider Earle sunshine Encounter Details Date Type Department Care Team (Late st Contact Info) Description 10/31/2017 Hosp Visit [facility] Outpatient [place] [address] Angela Bhatia, PT [place], [place] [address] Social History Tobacco Use Types Packs/Day Years [...] Progress Notes * Angela Bhatia, PT - 10/31/2017 10:41 AM CDT Marcela Campos [address](R) 1. Foot pain, bilateral PAIN IN BOTH FEET 2. Plantar fasciitis, bilateral BILATERAL PLANTAR FASCIITIS 3. Dizziness DIZZINESS 4. Gait disturbance ABNORMAL GAIT 10/31/2017 Pt. Called and cancelled today's appt due to having cortisone shot in both feet. Schedule to returnto clinic 11/07/17, pending MD appointment on 11/05/17 ANGELA BHATIA, PT documented in this encounter [...] Rule Out 04/03/2023 04/03/2023 04/03/2023 2:38 PM FINE ARTS INSTRUCTOR COVID-19 Confirmed 04/03/2023 04/03/2023 12:32 AM CDT documented as of this encounter Care Teams Sander Operator Relationship Specialty Start Date End Date David Leos MD PCP - General FAMILY PRACTICE 08/01/17 03/28/23 None, ProviderMD PCP - General UNKNOWN PHYSICIAN SPECIALTY 03/29/23 05/27/23 Solange Saenz DO [address] [place] [phone] PCP - General INTERNAL MEDICINE 05/28/23 01/13/24 None, ProviderMD PCP - General UNKNOWN PHYSICIAN SPECIALTY 01/14/24 documented as of this encounter
--- OUTSIDE RECORDS SUMMARY | 2024-10-08 15:32 | XMS_ITS | Encounter Summary ---
Author Organization [facility] Healthcare Address [address] [place] [address] Care Team Providers Care Chemistry Quality Control Technician Name Role Phone David Leos MD Primary Care Provider [phone] David Chiang DPM Unavailable [phone] Arias Mixon MD Primary Care Provider [phone] Laura Pham NP Primary Care Provider [phone] Solange Saenz DO Primary Care Provider [phone] Jaylin Mackey DO Primary Care Provider [phone] Encounter Details Date Type Department Care Team (Late st Contact Info) Description 04/05/2021 Telephone [facility] Building [address] [address] Katie Wade CLT Social History Tobacco Use Types Packs/Day Years Used Date Smoking Tobacco: Former Cigarettes Q uit: 1970 Smokeless Tobacco: Never Alcohol Use Standard [...] 12/09/2019 How often do you attend chur or worship services? Never 12/09/2019 Do you belong to any clubs o r organizations such as mosque groups, unions, fraternal or athletic groups, or school groups? Yes 12/09/2019 How often do you attend meet ings of the clubs or organizations you belong to? More than 4 times per year 12/09/2019 Are you , , di vorced, , never , or living with a partner? 12/09/2019 AUDIT-C Answer Date Recorded Q1: How often do you have a drink containing alc ohol? Monthly or less 03/22/2021 Q2: How many drinks containi ng alcohol do you have on a typical day when you are drinking? 1 or 2 03/22/2021 Q3: How often do you have si x or more drinks on one occasion? Never 03/22/2021 Overall Financial Resource Strain (CARDIA) Answe r Date Recorded How hard is it for you to pa y for the very basics like food, housing, medical care, and heating? Not hard at all 12/09/2019 PHQ-2 Answer Date Recorded PHQ-2 Total Score (If total score is 3 or more points, staff should administer the PHQ-9) 1 10/07/2020 [facility] - Occupational Stress [...] things needed for daily living? No 12/09/2019 Education Answer Date Recorded What is the highest level of school you have completed or the highest degree you have received? High school graduate 12/09/2019 Comments Unknown Sex and Gender Information Value Date Recorded Sex Assigned at Not on file Legal Sex Female 9:01 PM MANAGER LABOR RELATIONS Gender Identity Not on file Sexual Orientation Not on file Occupation Industry Job Start Date Job End Date reitred Not on file Not on file Not on file documented as of this encounter Plan of Treatment Not on file documented as of this encounter Visit Diagnoses Not on filedocumented in this encounter Additional Health Concerns Infection Onset Date Last Indicated Resolved Time COVID: Suspected 11/20/2021 11/20/2021 11/20/2021 9:37 PM CDT documented as of this encounter Care Teams Chemistry Quality Control Technician Relationship Specialty Start Date End Date David Leos MD PCP - General 06/18/17 02/19/22 Arias Mixon MD PCP - General Family Medicine 02/20/22 08/07/22 Laura Pham NP [address] [place] [address] PCP - General Family Medicine 12/14/22 09/12/23 Solange Saenz DO [address] [place] [address] [place] [address] PCP - General Internal Medicine 09/13/23 08/17/24 Jaylin Mackey DO [address] [place] [address] PCP - General Family Medicine 08/18/24 David Chiang DPM Referring Physician Podiatry 12/09/19 documented as of this encounter
--- OUTSIDE RECORDS SUMMARY | 2024-10-08 15:32 | XMS_ITS | Clinical Summary ---
Author Organization [facility] Address [address] [place] [address] Care Team Providers Care Pharmacy Analyst Name Role Phone None, Provider MD Primary Care Provider Unavaila ble Allergies Active Allergy Reactions Criticality Noted Date Comments Cyclobenzaprine Other (see comment) Low 11/29/2022 Makes me feel depressed Mental status changes Haemophilus B Polysaccharide Vaccine Fatigue Low 03/13/2017 Ibuprofen Swelling 01/16/2012 Influenza Virus Vaccine GI Upset 03/13/2017 Latex Contact Dermatitis 09/15/2015 Penicillin G Swelling 09/15/2015 Penicillins Hives 09/15/2015 Quetiapine Dizziness 09/15/2015 Tuberculin, Ppd Redness Low 08/30/2018 Medications melatonin 3 MG tablet Take 1 tablet (3 mg total) by mouth nightly as needed. Active Multiple Vitamin (MULTIVITAMIN ADULT OR) Take 1 capsule by mouth daily. Active losartan (COZAAR) 100 MG tablet Take 0.5 tablets (50 mg total) by mouth daily. 3 Active citalopram (CELEXA) 40 MG tablet Take 1 tablet (40 mg total) by mouth daily. 3 Active omeprazole (PRILOSEC) 20 MG capsule Take 1 capsule (20 mg total) by mouth daily. Active spironolactone (ALDACTONE) 25 MG tablet Take 1 tablet (25 mg total) by mouth 2 (two) times daily. Active lamoTRIgine (LAMICTAL) 100 MG tablet Take 1 tablet (100 mg total) by mouth 2 (two) times a day. 3 Active traZODone (DESYREL) 150 MG tablet Take 1 tablet (150 mg total) by mouth nightly. 3 Active tobramycin-dexa methasone (TOBRADEX) ophthalmic solution 4 Active nirmatrelvir & ritonavir 300/100 (PAXLOVID, 300/100,) 20 x 150 MG & 10 x 100MG tablet pack Take TWO nirmatrelvir 150 mg tablet(s) along with ONE ritonavir 100 mg tablet, with all three tablets taken together, twice daily for 5 days. May take with or without food. Swallow tablets whole. Do not chew, break or crush.. 30 tablet 4 Active Additional Information Patient not taking.Reported on 03/14/2024 oxyCODONE-aceta minophen (PERCOCET) 5-325 MG tabletIndicatio ns:Acute Pain < 3 Day Supply Take 1 tablet by mouth every 4 (four) hours as needed for Pain. Indications: Acute Pain < 3 Day Supply 10 tablet 4 Active Additional Information Patient not taking.Reported on 03/14/2024 baclofen (LIORESAL) 10 MG tablet 4 Active oxybutynin XL (DITROPAN-XL) 10 MG 24 hr tablet 4 Active meloxicam (MOBIC) 15 MG tablet Take 1 tablet (15 mg total) by mouth daily. 5 Active memantine (NAMENDA) 5 MG tabletIndicatio ns:MCI (mild cognitive impairment) Take 1 tablet (5 mg total) by mouth 2 (two) times daily. 180 tablet 10 5 Active Active Problems Patient Care Coordination No te Formatting of this note migh t be different from the original. PT precautions: HTN(med controlled), allergic to latex, fall risk. Problem Noted Date Diagnosed Date Atherosclerosis of aorta 06/17/2024 Coronary arteriosclerosis 06/17/2024 Hypertensive heart disease w ith congestive heart failure and chronic kidney disease ([facility]) 06/17/2024 Complete tear of right rotat or cuff, unspecified whether traumatic 10/18/2023 Tendinitis of long head of biceps brachii of rig ht shoulder 10/18/2023 Impingement syndrome of right shoulder 4 Primary osteoarthritis of left shoulder 03/22/19 Nontraumatic complete tear of left rotator cuff 03/22/2023 Hyponatremia 03/09/2023 Metabolic encephalopathy 03/09/2023 CKD (chronic kidney disease) stage 3, GFR 30-59 ml/min 03/04/2019 Acute kidney injury 02/16/2019 Medication overdose 02/16/2019 Benign paroxysmal positional vertigo due to bilateral vestibular disorder 08/26/2018 Overview (02/16/2019): Last Assessment & Plan: antivert script new start Chronic constipation 08/26/2018 Overview (02/16/2019): Last Assessment & Plan: Refer to [facility] Depressive disorder, not elsewhere classified Overview (02/16/2019): Last Assessment & Plan: Refill of klonopin to [facility] [phone] Bipolar disorder, unspecified ([facility]) 08/26/2018 B12 deficiency 06/07/2017 Lumbar radiculopathy 03/13/2017 Lumbar facet arthropathy 03/13/2017 Sacroiliitis 03/13/2017 Obesity, Class II, BMI 35-39.9, with comorbidity 12/15/2015 Overview (02/16/2019): Overview: BMI 39.99 Anxiety disorder 09/15/2015 Overview (02/16/2019): Overview: By: Juan Valerio MD; Overview: By: Juan Valerio MD; Bipolar disorder, in partial remission, most recent episode mixed ([facility]) 09/15/2015 Overview (02/16/2019): Overview: By: Hector SINGH CNP, Christopher; Overview: By: Hector SINGH CNP, Christopher; Vitamin D deficiency 09/15/2015 Rheumatoid arthritis ([facility]) 6 Overview (02/16/2019): Overview: By: Juan Valerio MD; Overview: By: Juan Valerio MD; 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 Overview (02/16/2019): Overview: By: Juan Valerio MD; Overview: By: Juan Valerio MD; Pain in joint 09/15/2015 Overview (02/16/2019): Overview: By: Hector SINGH CNP, Christopher; Major depressive disorder, single episode 2015 Overview (02/16/2019): Overview: By: Juan Valerio MD; Overview: By: Juan Valerio MD; Insomnia 09/15/2015 Overview (02/16/2019): Overview: By: Hector SINGH CNP, Christopher; Overview: By: Hector SINGH CNP, Christopher; Dorsalgia 09/15/2015 Overview (02/16/2019): Overview: By: Hector SINGH CNP, Christopher; Anemia 01/23/2012 Rhabdomyolysis 01/23/2012 Sinusitis, acute 01/22/2012 Prolonged QT interval 01/22/2012 Hypokalemia 01/22/2012 Hyperlipidemia 01/22/2012 Overview (02/16/2019): Overview: By: Juan Valerio MD; Overview: By: Juan Valerio MD; GERD (gastroesophageal reflux disease) 2 Elevated liver enzymes 01/22/2012 Type II or unspecified type diabetes mellitus without mention of complication, not stated as uncontrolled ([facility]) 12/02/2009 Menopausal and postmenopausal disorder 0 HTN (hypertension) 12/02/2009 CHF (congestive heart failure) ([facility]) 10/08/2008 Hypothyroidism 10/08/2008 Overview (02/16/2019): Overview: By: Hector SINGH CNP, Christopher; Overview: By: Hector SINGH CNP, Christopher; Family History Medical History Relation Comments Diabetes Brother Cancer Father Heart Disease Paternal Uncle Relation Status Comments Brother Father kidney and lung cancer Paternal Uncle Social History Tobacco Use Types Packs/Day Years Used Date Smoking Tobacco: Former Cigarettes 1 960 - 1969 Smokeless Tobacco: Former Tobacco Cessation:Counseling Given: Yes Alcohol Use Standard Drinks/Week Comments No 0 (1 standard drink = 0.6 oz pur e alcohol) PHQ-2 Answer Date Recorded Patient Health Questionnaire-2 Score 1 11/27/2023 Comments No Sex and Gender Information Value Date Recorded Sex Assigned at Not on file Legal Sex Female 7:56 PM CDT Gender Identity Not on file Sexual Orientation Not on file Occupation Industry Job Start Date Job End Date Not on file Not on file Not on file Not on file Last Filed Vital Signs Vital Sign Reading Time Taken Comments Blood Pressure 125/76 03/14/2024 10:46 AM RIGGING SLINGER Pulse 70 03/14/2024 10:46 AM RIGGING SLINGER Temperature 36.4 C (97.6 F) 03/14/2024 10:46 AM RIGGING SLINGER Respiratory Rate 18 12/03/2023 1:57 PM CDT Oxygen Saturation 96% 03/14/2024 10:46 AM RIGGING SLINGER Inhaled Oxygen Concentration - - Weight 90 kg (198 lb 6.4 oz) 03/14/2024 10:46 AM RIGGING SLINGER Height 163.8 cm (5' 4.5) 03/14/2024 10:46 AM CS T Body Mass Index 33.53 03/14/2024 10:46 AM RIGGING SLINGER Plan of Treatment Health Maintenance Due Date Last Done Comments ASCVD LDL 1945 Kidney Health Evaluation 1945 Lipid Panel 1945 Diabetes: Retinopathy Eye Exam 1964 DTaP, Tdap and Td Vaccines (1 - Tdap) 1965 Zoster Vaccines (1 of 2) 1996 Annual Medicare Wellness Visit 08/20/2011 Dexa Scan (General) 08/20/2011 RSV Immunization or 60+ Years (1 - 1-dose 75+ series) 2021 Hemoglobin A1C 06/29/2023 12/29/2022, 12/13, 10/17/2022, Additional history exists COVID-19 Vaccine ( - season) 2023 PHQ-2 (Physician [place]) 02/13/2024 11/27/2023 Hepatitis C Completed 01/19/2012 Colorectal Cancer Screening FIT/FOBT (1 Year) Discontinued 05/07/2017, 05/07/2017, 05/07/2017 Pneumococcal Vaccine: 50+ Years Completed 04/19/2023 Meningococcal B Vaccine Aged Out No l onger eligible based on patient's age to complete this topic Meningococcal Vaccine Aged Out No kali faith eligible based on patient's age to complete this topic RSV Immunizations Under 20 Months Aged Out No longer eligible based on patient's age to complete this topic Procedures Procedure Name Priority Date/Time Associated Diagnosis Comments HEMOGLOBIN, GLYCOSYLATED Routine 11/21/2021 OCCULT BLOOD, FECES Routine 05/07/2017 7 :17 AM CDT from Last 3 Months or Most Recently Relevant to Health Maintenance Results * HEMOGLOBIN, GLYCOSYLATED (11/21/2021) HGB A1C 5.3 % 11/21/2021 us Default History Genericprovider LABORATORY Final Result * OCCULT BLOOD, FECES (05/07/2017 7:17 AM CDT) OCCULT BLOOD FECAL NEGATIVE NEGATIVE 05/08/2017 9:48 AM CDT [facility] 05/07/2017 7:17 AM CDT us Provider Non-Staff BODY FLUIDS AND STOOLS ORDERA BLES Final Result [facility] [address] [place] [address], from Last 3 Months or Most Recently Relevant to Health Maintenance Insurance MEDICARE AETNA MEDICARE Advance Directives * Full Code (Latest Code Status on File) Date Activated Date Inactivated Comments 03/09/2023 9:59 PM 03/10/2023 6:39 PM Care Teams Pharmacy Analyst Relationship Specialty Start Date End Date None, Provider, MD PCP - General UNKNOWN PHYSICIAN SPECIALTY 01/14/24
--- OUTSIDE RECORDS SUMMARY | 2024-10-08 18:11 | XMS_ITS | Clinical Summary ---
Author Organization [facility] Address [address] [facility] Attn: Epic Prelude ADT AAYUSH GALLAGHER [id number] Care Team Providers Care Guide Domestic Tour Name Role Phone Todd Walters MD Primary Care Provider [phone] Allergies Active Allergy Reactions Criticality Noted Date [...] 09/22/2024 2:30 PM CDT Office Visit [facility] PATROLLER - [facility] [address] [facility] [address] [address] Tita Hayward MD Rectocele (Primary [...] on file Legal Sex Female 11:37 PM HEAD BUCKER Gender Identity Not on file Sexual Orientation [...] Description 08/20/2025 3:00 PM CDT Office Visit [facility] Gynecology [address] [place] [address] Tita Hayward MD 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
--- OUTSIDE RECORDS SUMMARY | 2024-10-08 18:11 | XMS_ITS | Encounter Summary ---
Author Organization [facility] Address [facility] [place] [address] Care Team Providers Care Director Of Safety And Security Name Role Phone David Leos MD Primary Care Provider [phone] None, Provider Primary Care Provider Solange Rowe DO Primary Care Provider [phone] None, Provider Primary Care Provider Earle sunshine Encounter Details Date Type Department Care Team (Late st Contact Info) Description 10/17/2017 Hosp Visit [facility] [place]patient [place] [address] [place] [address] Angela Lloyd, PT [address] [place], [place] [address] Social History Tobacco Use Types Packs/Day Years [...] Rule Out 04/03/2023 04/03/2023 04/03/2023 2:38 PM FINANCIAL COUNSELOR COVID-19 Confirmed 04/03/2023 04/03/2023 03/16/202 4 12:32 AM CDT documented as of this encounter Care Teams Director Of Safety And Security Relationship Specialty Start Date End Date David Leos MD PCP - General FAMILY PRACTICE 08/01/17 03/28/23 None, Provider, PCP - General UNKNOWN PHYSICIAN SPECIALTY 03/29/23 05/27/23 [place] [address] [place] [phone] PCP - General INTERNAL MEDICINE 05/28/23 01/13/24 None, ProviderMD PCP - General UNKNOWN PHYSICIAN SPECIALTY 01/14/24 documented as of this encounter
--- OUTSIDE RECORDS SUMMARY | 2024-10-08 18:11 | XMS_ITS | Clinical Summary ---
Author Organization [facility] Address [address] [place] [address] Care Team Providers Care C Architect Name Role Phone None, Provider MD Primary [...] congestive heart failure and chronic kidney disease ([facility]) 06/17/2024 Complete tear of right rotat or [...] (02/16/2019): Last Assessment & Plan: Refer to [facility] gi Depressive disorder, not elsewhere classified Overview (02/16/2019): Last Assessment & Plan: Refill of klonopin to [facility] [phone] Bipolar disorder, unspecified ([facility]) 08/26/2018 B12 deficiency 06/07/2017 Lumbar radiculopathy 03/13/2017 Lumbar facet arthropathy 03/13/2017 Sacroiliitis 03/13/2017 Obesity, Class II, BMI 35-39.9, with comorbidity 12/15/2015 Overview (02/16/2019): Overview: BMI 39.99 Anxiety disorder 09/15/2015 Overview (02/16/2019): Overview: By: Juan Valerio MD; Overview: By: Juan Valerio MD; Bipolar disorder, in partial remission, most recent episode mixed ([facility]) 09/15/2015 Overview (02/16/2019): Overview: By: Hector SINGH CNP, Christopher; Overview: By: Hector SINGH CNP, Christopher; Vitamin D deficiency 09/15/2015 Rheumatoid arthritis ([facility]) 6 Overview (02/16/2019): Overview: By: Juan Valerio [...] mention of complication, not stated as uncontrolled ([facility]) 12/02/2009 Menopausal and postmenopausal disorder 0 HTN (hypertension) 12/02/2009 CHF (congestive heart failure) ([facility]) 10/08/2008 Hypothyroidism 10/08/2008 Overview (02/16/2019): Overview: By: [...] Comments Blood Pressure 125/76 03/14/2024 10:46 AM TELECOM BILLING ANALYST Pulse 70 03/14/2024 10:46 AM TELECOM BILLING ANALYST Temperature 36.4 C (97.6 F) 03/14/2024 10:46 AM TELECOM BILLING ANALYST Respiratory Rate 18 12/03/2023 1:57 PM CDT Oxygen Saturation 96% 03/14/2024 10:46 AM TELECOM BILLING ANALYST Inhaled Oxygen Concentration - - Weight 90 kg (198 lb 6.4 oz) 03/14/2024 10:46 AM TELECOM BILLING ANALYST Height 163.8 cm (5' 4.5) 03/14/2024 10:46 AM CS T Body Mass Index 33.53 03/14/2024 10:46 AM TELECOM BILLING ANALYST Plan of Treatment Health Maintenance Due Date [...] Vaccine ( - season) 2023 PHQ-2 (Physician Erin) 02/13/2024 11/27/2023 Hepatitis C Completed 01/19/2012 Colorectal [...] FECAL NEGATIVE NEGATIVE 05/08/2017 9:48 AM CDT [facility] 05/07/2017 7:17 AM CDT us Provider Non-Staff BODY FLUIDS AND STOOLS ORDERA BLES Final Result [facility] [address] [place] [address], from Last 3 Months or Most Recently Relevant to Health Maintenance Insurance MEDICARE [employer] MEDICARE Advance Directives * Full Code (Latest Code Status on File) Date Activated Date Inactivated Comments 03/09/2023 9:59 PM 03/10/2023 6:39 PM Care Teams C Architect Relationship Specialty Start Date End Date None, Provider, MD PCP - General UNKNOWN PHYSICIAN SPECIALTY 01/14/24
--- OUTSIDE RECORDS SUMMARY | 2024-10-08 18:11 | XMS_ITS | Encounter Summary ---
Author Organization [facility] Address [address] [place] [address] Care Team Providers Care Book Store Associate Name Role Phone David Leos MD Primary Care Provider [phone] David Chiang DPM Unavailable [phone] Arias Mixon MD Primary Care Provider [phone] Laura Pham NP Primary Care Provider [phone] Solange Saenz DO Primary Care Provider [phone] Jaylin Mackey DO Primary Care Provider [phone] Encounter Details Date Type Department Care Team (Late st Contact Info) Description 04/05/2021 Telephone [facility] [address] [address] Katie Wade CLT Social History [...] How often do you attend chur or synagogue services? Never 12/09/2019 Do you belong to any clubs o r organizations such as caodaism groups, unions, fraternal or athletic groups, or [...] staff should administer the PHQ-9) 1 10/07/2020 [facility] of Occupat ional Health - Occupational Stress [...] on file Legal Sex Female 9:01 PM FOREIGN EXCHANGE STUDENT COORDINATOR Gender Identity Not on file Sexual Orientation [...] documented as of this encounter Care Teams Book Store Associate Relationship Specialty Start Date End Date David Leos MD PCP - General 06/18/17 02/19/22 Arias Mixon MD PCP - General Family Medicine 02/20/22 08/07/22 Laura Pham NP [address] [place] [address] PCP - General Family Medicine 12/14/22 09/12/23 Solange Saenz DO [address] [place] [address] [place] [address] PCP - General Internal Medicine 09/13/23 08/17/24 Jaylin Mackey DO [address] [place] [address] PCP - General Family Medicine 08/18/24 David Chiang DPM Referring Physician Podiatry 12/09/19 documented as of this encounter
--- OUTSIDE RECORDS SUMMARY | 2024-10-08 18:11 | XMS_ITS | Clinical Summary ---
Author Organization [facility] Address [address] [place] [id number] Care Team Providers Care Data Entry Coordinator Name Role Phone David Chiang DPM Unavailable [phone] Jaylin Mackey DO Primary Care Provider [phone] Allergies Active Allergy Reactions Criticality Noted Date [...] 03/21/2023 Assessment & Plan (03/21/2023 5:49 PM TERRITORY SERVICE REPRESENTATIVE): HPI: Condition is not at/near goal. Patient [...] 01/02/2023 Assessment & Plan (01/02/2023 10:38 AM TERRITORY SERVICE REPRESENTATIVE): HPI: Condition is not at/near goal. Patient reports that she is a lways had vaginal pain for as long she can remember. Patient states that Dr. Leos was supposed to put in a referral for her for gynecology but she is never heard from anybody. At our last appointment 12/14/2022 - we placed a referral for PROGRAM DIRECTOR GROUP WORK. Today, patient states that she still has [...] Concern for cystocele. Referral placed today for PROGRAM DIRECTOR GROUP WORK and spoke with scheduling staff to expedite case. Frequent UTI 01/02/2023 Assessment & Plan (03/21/2023 5:30 PM TERRITORY SERVICE REPRESENTATIVE): HPI: Condition is improving, but not at [...] of pelvic heaviness. I referred her to PROGRAM DIRECTOR GROUP WORK and patient was supposed to see Dr. Michael Medrano, PROGRAM DIRECTOR GROUP WORK but states she never went to appointment. A&P: Urine analysis obtained in office today showing moderate blood, small leukocytes, and negative nitrates. Specimen sent off for culture. We will follow up pending culture results. Patient to call office if symptoms worsen or do not improve. Recommend following up with PROGRAM DIRECTOR GROUP WORK. Assessment & Plan (01/02/2023 10:38 AM TERRITORY SERVICE REPRESENTATIVE): HPI: Condition is not at/near goal. Patient reports that she is a lways had vaginal pain for as long she can remember. Patient states that Dr. Leos was supposed to put in a referral for her for gynecology but she is never heard from anybody. At our last appointment 12/14/2022 - we placed a referral for PROGRAM DIRECTOR GROUP WORK. Today, patient states that she still has [...] Concern for cystocele. Referral placed today for PROGRAM DIRECTOR GROUP WORK and spoke with scheduling staff to expedite case. Frequent urination 01/02/2023 Assessment & Plan (01/02/2023 10:39 AM TERRITORY SERVICE REPRESENTATIVE): HPI: Condition is not at/near goal. Patient reports that she is a lways had vaginal pain for as long she can remember. Patient states that Dr. Leos was supposed to put in a referral for her for gynecology but she is never heard from anybody. At our last appointment 12/14/2022 - we placed a referral for PROGRAM DIRECTOR GROUP WORK. Today, patient states that she still has [...] Concern for cystocele. Referral placed today for PROGRAM DIRECTOR GROUP WORK and spoke with scheduling staff to expedite case. Incomplete bladder emptying 01/02/2023 Assessment & Plan (01/02/2023 10:39 AM TERRITORY SERVICE REPRESENTATIVE): HPI: Condition is not at/near goal. Patient reports that she is a lways had vaginal pain for as long she can remember. Patient states that Dr. Leos was supposed to put in a referral for her for gynecology but she is never heard from anybody. At our last appointment 12/14/2022 - we placed a referral for PROGRAM DIRECTOR GROUP WORK. Today, patient states that she still has [...] Concern for cystocele. Referral placed today for PROGRAM DIRECTOR GROUP WORK and spoke with scheduling staff to expedite case. Class 1 obesity with serious comorbidity and body mass index (BMI) of 34.0 to 34.9 in adult 12/14/2022 Assessment & Plan (03/21/2023 3:08 PM TERRITORY SERVICE REPRESENTATIVE): HPI: Condition is improving, but not at goal goal BMI <30 A&P: Healthy, high-protein, lower carbohydrate, lower fat lifestyle and exercise for 150min/week recommended. Assessment & Plan (01/02/2023 9:37 AM TERRITORY SERVICE REPRESENTATIVE): HPI: Condition is improving, but not at [...] in your mouth on an kierra like [employer] Lower carb substitutions: Mark carries a zero [...] in much longer they will become mushy [place] and/or coconut flour instead of regular flour [...] pork rinds For yogurt, try [employer] uzbek yogurt Use Td for recipe ideas. Type [...] 12/14/2022 Assessment & Plan (01/02/2023 10:37 AM TERRITORY SERVICE REPRESENTATIVE): HPI: Condition is not at/near goal. Patient reports that she is a lways had vaginal pain for as long she can remember. Patient states that Dr. Leos was supposed to put in a referral for her for gynecology but she is never heard from anybody. At our last appointment 12/14/2022 - we placed a referral for PROGRAM DIRECTOR GROUP WORK. Today, patient states that she still has [...] Concern for cystocele. Referral placed today for PROGRAM DIRECTOR GROUP WORK and spoke with scheduling staff to expedite [...] for gynecology. 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) use of opiate analgesic 03/15 Radiculopathy, lumbar region 03/31/2022 Anemia, unspecified 02/12/2022 Unspecified osteoarthritis, unspecified site 02/2022 Personal history of pneumonia (recurrent) 2022 Personal history of nicotine dependence 02/12/19 23 Hepatic failure, unspecified without coma 2022 Hypothyroidism 02/12/2022 Migraine, unspecified, not i ntractable, without status migrainosus 02/12/2021 Fibromyalgia 02/12/2021 Shoulder impingement syndrome, left 04/14/2019 Assessment & Plan (04/14/2019 3:07 PM TERRITORY SERVICE REPRESENTATIVE): I discussed conservative versus operative treatment with [...] 1:06 PM CDT): Refill of klonopin to [facility] pharmacy [phone] Benign paroxysmal positional vertigo due to bilateral [...] hot drink, can also improve the situation terminal make up operator. Assessment & Plan (08/26/2018 1:04 PM CDT): Refer [facility] gi Mild episode of recurrent major depressive disor donna 08/26/2018 Overview (09/03/2020): Last Assessment & Plan: Refill of klonopin to [facility] [phone] Assessment & Plan (01/02/2023 9:39 AM TERRITORY SERVICE REPRESENTATIVE): Patient reiterated no suicidal thoughts at this [...] MD; Assessment & Plan (01/02/2023 9:38 AM TERRITORY SERVICE REPRESENTATIVE): Patient reiterated no suicidal thoughts at this [...] MD; Assessment & Plan (03/21/2023 5:47 PM TERRITORY SERVICE REPRESENTATIVE): HPI: Condition is not at/near goal. BP [...] stroke. Assessment & Plan (01/02/2023 9:38 AM TERRITORY SERVICE REPRESENTATIVE): HPI: Condition is stable A&P: Discussed/ordered labs, [...] Gabe; Assessment & Plan (01/02/2023 9:38 AM TERRITORY SERVICE REPRESENTATIVE): HPI: Condition is stable A&P: Discussed/ordered labs, [...] 09/15/2015 Assessment & Plan (01/02/2023 10:41 AM TERRITORY SERVICE REPRESENTATIVE): HPI: Condition is stable A&P: Discussed/ordered labs, encouraged healthy, low carbohydrate lifestyle and at least 150min/week of exercise. Patient to stop taking vitamin D3 5000 units daily and begin taking vitamin D3 78699 units once weekly. Assessment & Plan (12/14/2022 10:23 AM CDT): HPI: Condition is stable A&P: Discussed/ordered labs, encouraged healthy, low carbohydrate lifestyle and at least 150min/week of exercise, continue on vitamin D3 5000 units daily. GERD (gastroesophageal reflux disease) 2 Assessment & Plan (01/02/2023 9:38 AM TERRITORY SERVICE REPRESENTATIVE): HPI: Condition is stable Continue on current [...] Refer to a GI Dr Carpio in [place] Assessment & Plan (06/27/2019 11:33 AM CDT): add Carafate ADD famotidine. Hyperlipidemia 01/22/2012 Overview (05/15/2018): By: Juan Valerio MD; Assessment & Plan (01/02/2023 10:42 AM TERRITORY SERVICE REPRESENTATIVE): HPI: Condition is not at/near goal. Patient [...] (09/05/2021): Added automatically from request for surgery [id number] Irritable bowel syndrome with constipation 07/24/2019 12/14/2022 Assessment & Plan (07/24/2019 11:45 AM CDT): DC Amitiza 24 mcg Start Amitiza 8 mcg. Right foot pain 04/14/2019 12/14/2022 Assessment & Plan (04/14/2019 3:10 PM TERRITORY SERVICE REPRESENTATIVE): I will refer the patient to closing specialist, Dr. Howard. Left hand pain 04/14/2019 12/14/2022 Assessment & Plan (04/14/2019 3:10 PM TERRITORY SERVICE REPRESENTATIVE): I will refer the patient to hand [...] MD; Assessment & Plan (03/04/2019 11:22 AM TERRITORY SERVICE REPRESENTATIVE): Increase spironolactone 25mg bid Dorsalgia 09/15/2015 12/14/2022 [...] Patient states that when she was at [facility] they told her that her A1C was [...] Description 10/07/2024 2:30 PM CDT Office Visit [facility] Medicine [address] [facility] [address] [place] [address] Daryl Martinez MD Rotator cuff tear arthropathy, left (Primary Dx) 09/24/2024 2:15 PM CDT Office Visit [facility] Orthopedics and Sports Medicine [address] [phone] Juan Joy MD Trochanteric bursitis of right hip (Primary Dx); Trochanteric bursitis of left hip 08/27/2024 2:15 PM CDT - 08/27/2024 11:59 PM CDT Hospital Encounter [facility] MRI [address] [place] [id number] Arthritis of shoulder region, left; Left shoulder pain, unspecified chronicity Discharge Disposition: Discharge to home or self care 08/27/2024 2:06 PM CDT - 08/27/2024 11:59 PM CDT Hospital Encounter [facility] MRI [address] [place] [address] Primary osteoarthritis of right shoulder; Right shoulder pain, unspecified chronicity Discharge Disposition: Discharge to home or self care 2024 Telephone [facility] Medical [facility] Medicine [address] [place] [address] [address] [place] [address] Juan Joy MD Scheduling Appointments 08/18/2024 1:00 PM CDT Office Visit [facility]opedics [facility] Sports Medicine [address] [place] [address] [address] [place] [address] Juan Joy MD Nontraumatic complete tear of right rotator cuff (Primary Dx); Nontraumatic complete tear of left rotator cuff; Arthritis of left shoulder region; Primary osteoarthritis of right shoulder 08/18/2024 12:55 PM CDT - 08/18/2024 11:59 PM CDT Hospital Encounter [facility] [address] [place] [address] Nontraumatic complete tear of left rotator cuff; [...] often do you attend chur ch or taoist services? Never 12/09/2019 Do you belong to any clubs o r organizations such as religion groups, unions, fraternal or athletic groups, or [...] staff should administer the PHQ-9) 0 12/14/2022 [facility] of Occupat ional Health - Occupational [...] on file Legal Sex Female 9:01 PM TERRITORY SERVICE REPRESENTATIVE Gender Identity Not on file Sexual Orientation Not on file Occupation Industry Job Start Date Job End Date reitred Not on file Not on file Not on file Obstetrics History Last Filed Vital Signs Vital Sign Reading Time Taken Comments Blood Pressure 140/80 03/20/2023 3:15 PM TERRITORY SERVICE REPRESENTATIVE Pulse 78 03/20/2023 3:15 PM TERRITORY SERVICE REPRESENTATIVE Temperature 36.1 C (97 F) 03/20/2023 3:15 PM TERRITORY SERVICE REPRESENTATIVE Respiratory Rate 18 03/20/2023 3:15 PM TERRITORY SERVICE REPRESENTATIVE Oxygen Saturation 97% 03/20/2023 3:15 PM TERRITORY SERVICE REPRESENTATIVE Inhaled Oxygen Concentration - - Weight 83.5 [...] Procedure Name Priority Date/Time Associated Diagnosis Comments WI ARTHROCENTESIS ASPIR&/INJ MAJOR JT/BURSA W/O US Routine [...] RNA, QUANTITATIVE, PCR Routine 12/29/2022 8:10 AM TERRITORY SERVICE REPRESENTATIVE Encounter for hepatitis C screening test for low risk patient SCREENING MAMMOGRAM BILATERAL W GIUSEPPE Schedule Routine, Read Routine (OP Routine) 09/06/2018 COLONOSCOPY Routine 10/23/2016 from Last 3 Months or Most Recently Relevant to Health Maintenance Results * WI ARTHROCENTESIS ASPIR&/INJ MAJOR JT/BURSA W/O US (09/24/2024 [...] 40 mg/mL Juan Joy MD IN CLINIC/BEDSIDE YCRUS PURCELL Final Result * MRI Shoulder Left [...] by Michael Izaguirre M.D. T: Report ID: [id number] Reading Location: [id number] Procedure Note Michael Izaguirre MD - 08/27/2024 [...] by Michael Izaguirre M.D. T: Report ID: [id number] Reading Location: [place] [address] Ayala ADDISON IM MRI PROCEDURES Final R [...] by Michael Izaguirre M.D. T: Report ID: [id number] Reading Location: [id number] Procedure Note Michael Izaguirre MD - 08/27/2024 [...] by Michael Izaguirre M.D. T: Report ID: [id number] Reading Location: [id number] Ayala ADDISON IMDoris MRI PROCEDURES Final R [...] by Michael Izaguirre M.D. T: Report ID: [id number] Reading Location: [id number] Procedure Note Michael Izaguirre MD - 2024 [...] by Michael Izaguirre M.D. T: Report ID: [id number] Reading Location: [id number] Juan Joy MD IMG XR PROCEDURES Arlette [...] by Michael Izaguirre M.D. T: Report ID: [id number] Reading Location: [id number] Procedure Note Michael Izagurire MD - 2024 EXAM DESCRIPTION: 1. XR [...] by Michael Izaguirre M.D. T: Report ID: [id number] Reading Location: [id number] Juan Joy MD IMG XR PROCEDURES Arlette l Result * Hepatitis C (HCV) RNA PCR, quantitative Blood (12/29/2022 8:10 AM TERRITORY SERVICE REPRESENTATIVE) HCV RNA result Not Detected [facility] Comment: The quantifiable range of this assay is 15 IU/mL to 100,000,000 IU/mL (1.18 log IU/mL to 8.00 log IU/mL). Testing was performed by the [facility]00 HCV Test ([employer] Testing performed at [facility] Current Interpretive Data was last revised on 2020 Testing performed by: [facility], [address] [place]., [address] Blood 12/29/2022 8:10 AM TERRITORY SERVICE REPRESENTATIVE 12/29/2022 4:09 PM TERRITORY SERVICE REPRESENTATIVE us Laura Pham NETWORK CONTRACTOR LAB MICROBIOLOGY - GENERAL OR DERABLES Final Result [facility] [address] [facility] Department [place] [address] * Screening Mammogram Bilateral W [...] Advance Directives For more information, please contact: [phone] * Full Code (Latest Code Status on File) Date Activated Date Inactivated Comments 11/21/2021 12:25 AM 11/22/2021 9:00 PM Care Teams Data Entry Coordinator Relationship Specialty Start Date End Date Jaylin Mackey DO [address] [place] [address] PCP - General Family Medicine 08/18/24 David Chiang, DPM Referring Physician Podiatry 12/09/19
--- OUTSIDE RECORDS SUMMARY | 2024-10-08 18:11 | XMS_ITS | Encounter Summary ---
Author Organization [facility] Address [address] [place] [address] [place] [address] Care Team Providers Care Superintendent House Name Role Phone Kody Valdivia MD Primary Care Provider [phone] Kody Valdivia MD Unavailable Phillip Jefferson MD Unavailable [phone] Unknown, Provider Primary Care Provider Unavaila ble Encounter Details Date Type Department Care Team (Late Contact Info) Description 04/12/2020 Lab Requisition [facility] Care DermPath Lab [address] [place] [phone] Elma Marino MD [address] [facility] ([place], [place]) [address] [place] [address] Social History Tobacco Use Types Packs/Day Years Used Date Smoking Tobacco: Former Cigarettes 1 12 1 03/20/1970 - 01/17/1983 Alcohol Use Standard Drinks/Week Comments No 0 (1 standard drink = 0.6 oz pur e alcohol) Comments Unknown Sex and Gender Information Value Date Recorded Sex Assigned at Not on file Legal Sex Female 10:01 AM FLORAL DESIGNER SALESPERSON Gender Identity Not on file Sexual Orientation Not on file documented as of this encounter Plan of Treatment Upcoming Encounters Date Type Department Care Team (Late Contact Info) Description 05/25/2025 2:00 PM CDT Office Visit [facility] - Ophthalmology [address] [place] [phone] Casey Scales OD [address] [place] [phone] documented as of this encounter Goals Goal Patient Goal Type Associated Problems Recent Progress Patient-Stated? Author Blood Pressure < 140/90 Blood Pressure Hyperlipidemia 130/79(09/14 9:48 AM CDT) No Santi Carrasco STEVEN LDL CALCULATED < 130 Result Component Hyperlipidemia 127(01/17/20 12 3:25 AM FLORAL DESIGNER SALESPERSON) No Santi Carrasco STEVEN Weight (LB) < 200 lb Weight Hyperlipidemia 105.7 kg (233 lb)(09/15/19 16 9:48 AM CDT) No Santi Carrasco STEVEN documented as of this encounter Procedures Procedure Name Priority Date/Time Associated Diagnosis Comments DERMATOPATHOLOGY Routine 04/08/2020 12:0 0 AM FLORAL DESIGNER SALESPERSON documented in this encounter Results * DERMATOPATHOLOGY (04/08/2020 12:00 AM FLORAL DESIGNER SALESPERSON) Case Report Dermatopathology Report Case: [id number] Authorizing Provider: Elma Marino MD Collected: 04/08/2020 12:00 AM Ordering Location: [facility] DermPath Lab Received: 04/12/2020 10:21 AM Pathologist: Felicita Rodriguez MD Specimen: Skin, left forehead 1:29 PM [facility] DERMATOPATHOLOGY LABORATORY Final Diagnosis Specimen A. SKIN, left forehead: SQUAMOUS CELL CARCINOMA IN SITU, PRESENT AT THE BASE OF THE SPECIMEN (D04.39) (see microscopic description and comment) 1:29 PM [facility] DERMATOPATHOLOGY LABORATORY at [address] FLORAL DESIGNER SALESPERSON Clinical History R/O SCC, SK. 1:29 PM [facility] DERMATOPATHOLOGY LABORATORY Gross Description Specimen A: Received is one formalin filled container labeled with the patient's name and designated left forehead. The specimen consists of a shave biopsy measuring [id number]. Jar 0+. 1:29 PM [facility] DERMATOPATHOLOGY LABORATORY Microscopic Description Specimen A. SKIN, left forehead: The epidermis shows parakeratosis, full thickness disorderly maturation of keratinocytes, mitoses at different levels, and dyskeratotic cells. The lesion extends to the base of the biopsy. COMMENT: An invasive squamous cell carcinoma cannot be ruled out. 1:29 PM [facility] DERMATOPATHOLOGY LABORATORY Disclaimer An external and [...] purposes. Billing Codes Specimen Charges Stain Charges 26594 1 1 1:29 PM FLORAL DESIGNER SALESPERSON DERMATOPATHOLOGY LABORATORY Embedded Images 1 1:29 PM FLORAL DESIGNER SALESPERSON DERMATOPATHOLOGY LABORATORY Pathology/Cytolog y TISSUE SPECIMEN FROM SKIN / Unknown 04/08/2020 04/12/2020 10:21 AM FLORAL DESIGNER SALESPERSON Elma Marino MD LAB - PATHOLOGY/CYTOLOGY ORD ERABLES Final Result DERMATOPATHOLOGY LABORATORY [facility] - Department of Dermatology [facility] Medicine [address] [place] [address], [address] [phone] documented in this encounter Visit Diagnoses Not on filedocumented in this encounter Care Teams Superintendent House Relationship Specialty Start Date End Date Kody Valdivia MD [address] [address] PCP - General 04/12/20 05/18/24 Unknown, Provider PCP - General 05/19/24 Kody Valdivia MD [address] [place] [address] 04/12/20 Phillip Jefferson MD [address] [place] [address] Neurology 11/19/12 documented as of this encounter
--- OUTSIDE RECORDS SUMMARY | 2024-10-08 18:11 | XMS_ITS | Encounter Summary ---
Author Organization [facility] Address [facility] [place] [address] Care Team Providers Care Service Order Expediter Name Role Phone David Leos MD Primary Care Provider [phone] None, Provider Primary Care Provider Solange Rowe DO Primary Care Provider [phone] None, Provider Primary Care Provider Earle sunshine Encounter Details Date Type Department Care Team (Late st Contact Info) Description 10/31/2017 Hosp Visit [facility] [place]patient [place] [address] Angela Bhatia, PT [place], [place] [phone] Social History Tobacco Use Types Packs/Day Years [...] Rule Out 04/03/2023 04/03/2023 04/03/2023 2:38 PM SUPERVISOR PICKING [employer]W COVID-19 Confirmed 04/03/2023 04/03/2023 12:32 AM CDT documented as of this encounter Care Teams Service Order Expediter Relationship Specialty Start Date End Date David Leos MD PCP - General FAMILY PRACTICE 08/01/17 03/28/23 None, ProviderMD PCP - General UNKNOWN PHYSICIAN SPECIALTY 03/29/23 05/27/23 Solange Saenz DO [address] [place] [phone] PCP - General INTERNAL MEDICINE 05/28/23 01/13/24 None, ProviderMD PCP - General UNKNOWN PHYSICIAN SPECIALTY 01/14/24 documented as of this encounter
--- OUTSIDE RECORDS SUMMARY | 2024-10-08 18:11 | XMS_ITS | Clinical Summary ---
Author Organization [facility] Address [facility] [facility] [place] [address] Care Team Providers Care Clubhouse Manager Name Role Phone Kody Valdivia MD Unavailable Phillip Jefferson MD Unavailable [phone] Unknown, Provider Primary Care Provider Unavaila ble Source Comments [facility],non-owned Affiliates and Associated Physician Practices is amultiple site organization consisting of ambulatory clinics and hospital sitesin [place], [place], [place] and [place]. This disclosure is being madepursuant to the Care Everywhere program and may not contain all information available regarding this patient. Last updated 17.[facility] Allergies Active Allergy Reactions Criticality Noted Date [...] 200 MG tablet LAMICTAL XR 200 MG [id number] [LAMOTRIGINE] ; Rx by [facility]. 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 Gender Identity Not on file Sexual Orientation [...] Visit [facility] - [facility] [address] [place] [phone] Casey Scales, DANNA [address] [place] [phone] Health Maintenance Due Date Last Done Comments [...] Result Component Hyperlipidemia 127(01/17/20 12 3:25 AM HAND CANDY CUTTER) No Santi Carrasco [facility] Weight (LB) < 200 lb Weight Hyperlipidemia 105.7 kg (233 lb)(09/15/19 16 9:48 AM CDT) No Santi Carrasco [facility] Procedures Procedure Name Priority Date/Time Associated Diagnosis Comments HEPATITIS SCREEN ACUTE AM Draw 01/19/2012 4:19 AM HAND CANDY CUTTER from Last 3 Months or Most Recently Relevant to Health Maintenance Results * HEPATITIS SCREEN ACUTE (01/19/2012 4:19 AM HAND CANDY CUTTER) HAV Antibody IgM Negative Negative 01/19/2012 9:27 AM [facility] HBc Antibody IgM Negative Negative 01/19/2012 9:27 AM [facility] HBsAg Negative Negative 01/19/2012 9:27 AM [facility] HCV Antibody Screen Negative Negative 01/19/2012 9:27 AM [facility] Hepatitis C Virus Index <0.02 0.00 - 0.99 01/19/2012 9:27 AM [facility] Blood specimen (specimen) BLOOD SPECIMEN / Unknown 01/19/2012 4:19 AM HAND CANDY CUTTER 01/19/2012 4:44 AM HAND CANDY CUTTER Jose Luis Franco MD LAB - CHEMISTRY ORDERABLES Final Result [facility] [address] [place] [address] from Last 3 Months or Most Recently Relevant to Health Maintenance Insurance MEDICAID - [place] MED[place] MEDICARE MEDICAID - OUT OF STATE MEDICARE AET MEDICAID - [place] MED[place]ARE MEDICARE Member Subscriber Plan / Payer (Ef fective 1989-Present) Name:Rani Busby Member ID:[id number] Relation to Subscriber:Self Name:RANI BUSBY Subscriber ID:[id number] Payer ID:Not on file Group ID:Not on file Type:Medicare Address: [place] [id number] MEDICARE MEDICARE Advance Directives * FULL RESUSCITATION (Latest Code Status on File) Date Activated Date Inactivated Comments 01/20/2012 8:59 PM 01/29/2012 5:07 PM * FULL RESUSCITATION Date Activated Date Inactivated Comments 01/17/2012 2:35 AM 01/20/2012 7:28 PM Care Teams Clubhouse Manager Relationship Specialty Start Date End Date Unknown, Provider PCP - General 05/19/24 Kody Valdivia MD [address] [place] [address] 04/12/20 Phillip Jefferson MD [address] [place] [address] Neurology 11/19/12
--- NOTE | 2024-10-08 18:44 | ED.GENADULT ---
HPI - General Adult General Chief complaint: Head Injury Stated complaint: Fell Sunday, [place] Time Seen by Provider: 10/08/24 17:26 History of Present Illness HPI narrative: This is a 79-year-old female presenting ED after a fall. She fell 3 days ago and struck her head. She did not lose conscious. She not use blood thinners. She saw her primary care physician earlier today and told her that she thought that she had been more forgetful since the fall. She says she has been losing her train of thought. She is A&O x3 and can not hold a lucid conversation with me here. She has no other complaints at this time. Related Data Home Medications ?Medication ?Instructions ?Recorded ?Confirmed ?Last Taken ?Type meloxicam 15 mg tablet 15 mg PO DAILY 05/08/24 10/08/24 Unknown History oxycodone 5 mg tablet 5 mg PO Q6H PRN 08/06/24 10/08/24 Unknown History Allergies Allergy/AdvReac Type Severity Reaction Status Date / Time Latex, Natural Rubber AdvReac Severe flesh Verified 10/08/24 15:34 eating tuberculin, purified protein AdvReac Severe Swelling Verified 10/08/24 15:34 deriva Penicillins AdvReac Intermediate Dyspnea / Verified 10/08/24 15:34 SOB PMFSH Past Medical History Medical History Hyperlipidemia Hypertension BMI 33.0-33.9,adult Family History Family History Father Cancer antigen 125 (CA 125) elevation Mother Depression Sibling Diabetes mellitus Social History Social History Smoking status: Former smoker (quit at 26 y/o ) Second hand tobacco smoke exposure: Yes Alcohol intake: current Substance use: never Substance use type: does not use Do You Feel Safe in your Home?: Yes Lack of Transportation: No Lack of Food: Never True Current Housing: I Have Housing Concerned About Future Housing: No Difficulty Paying Gas/Electric Bills: No Difficulty Paying for Meds: No Currently Unemployed: No Education: High School Diploma/GED Difficulty w/ Childcare or Family Care: No Living arrangements: alone Occupation/Education: unemployed Additional occupation/education comments: Disabled Gender identity (if verbalized by the patient): Female Exam Narrative: APPEARANCE: No apparent distress. Head: atraumatic. EYES: EOMI, NOSE: Atraumatic NECK: Trachea midline RESPIRATORY: No increased rate of breathing, CTAB CARDIOVASCULAR: RRR, no peripheral edema ABDOMINAL: Non-distended MUSCULOSKELETAl: No obvious deformities NEURO: Alert. Cranial nerves 2-12 grossly intact. Sensation light touch, motor function cerebellar function intact for 4 extremities. Gait exam was normal. SKIN:: Warm, dry. Normal color PSYCHIATRIC: Normal affect Course Vital Signs Vital signs: Vital Signs Temperature 97.5 F L 10/08/24 15:31 Pulse Rate 67 10/08/24 15:31 Respiratory Rate 17 10/08/24 15:31 Blood Pressure 129/58 L 10/08/24 15:31 Pulse Oximetry 97 10/08/24 15:31 Oxygen Delivery Room Air 10/08/24 15:31 Temperature 97.5 F L 10/08/24 15:31 Pulse Rate 67 10/08/24 15:31 Respiratory Rate 17 10/08/24 15:31 Blood Pressure 129/58 L 10/08/24 15:31 Pulse Oximetry 97 10/08/24 15:31 Oxygen Delivery Room Air 10/08/24 15:31 Medical Decision Making MDM Narrative Medical decision making narrative: -Course: 79-year-old female presenting 3 days after a fall. She is complaining of confusion although when she gives examples it seems to be relatively minor examples of losing her train of thought as opposed to true altered mental status. She is able to hold a lucid conversation and does not appear confused to me at all. Her physical exam is unremarkable with no evidence of trauma, infection or neurologic deficits. We discussed laboratory studies, urinalysis chest x-ray to look for other causes of confusion the patient says she feels well overall and does not feel that she needs those things. Her CT brain was unremarkable. She will be discharged follow-up with primary care physician. -DDX includes but is not limited to: Closed head injury, intracranial hemorrhage, normal aging, dementia, infection metabolic derangement Vital Signs Vital Signs: Vital Signs Temperature 97.5 F L 10/08/24 15:31 Pulse Rate 67 10/08/24 15:31 Respiratory Rate 17 10/08/24 15:31 Blood Pressure 129/58 L 10/08/24 15:31 Pulse Oximetry 97 10/08/24 15:31 Oxygen Delivery Room Air 10/08/24 15:31 Temperature 97.5 F L 10/08/24 15:31 Pulse Rate 67 10/08/24 15:31 Respiratory Rate 17 10/08/24 15:31 Blood Pressure 129/58 L 10/08/24 15:31 Pulse Oximetry 97 10/08/24 15:31 Oxygen Delivery Room Air 10/08/24 15:31 Discharge Plan Discharge Clinical Impression: Fall Patient Disposition: Home Condition: Stable Instructions: Antibiotic Form, Head Injury (ED) Additional Instructions: You were seen in the emergency department after a fall. Your CT brain did not show any acute bleed. Please follow-up with your primary care physician for further management of your confusion. If you develop any new symptoms please return to the ED for re-evaluation. Patient Language: [place] Prescriptions: No Action oxycodone 5 mg tablet 5 mg PO Q6H PRN docusate sodium 100 mg capsule 100 mg PO DAILY Qty: 90 3RF citalopram 20 mg tablet 20 mg PO DAILY Qty: 90 0RF lamotrigine 100 mg tablet 100 mg PO DAILY Qty: 90 0RF meclizine 25 mg tablet 25 mg PO TID PRN (Reason: dizziness) Qty: 30 0RF meloxicam 15 mg tablet 15 mg PO DAILY oxybutynin chloride 10 mg tablet extended release 24hr See Rx Instructions .ROUTE .COMPLEX Qty: 90 3RF Dose Instruction: TAKE 1 TABLET BY MOUTH DAILY Rx Instructions: TAKE 1 TABLET BY MOUTH DAILY omeprazole 20 mg capsule,delayed release(DR/EC) 20 mg PO DAILY Qty: 90 3RF trazodone 150 mg tablet 150 mg PO QHS PRN (Reason: insomnia) Qty: 90 0RF Follow-up/Referrals: Jaylin Mackey DO [Primary Care Provider, Family Practice]
[2024-10-08 19:15] VITALS: BP 127/85; PULSE 61; RESP 18; TEMP 36.6; O2SAT 99
== END 2024-10-08 19:16 | disposition home or self-care (01) ==
PROVIDERS: Emergency Provider Emergency Medicine; PCP Family Medicine
DX: R41.0 Disorientation, unspecified (principal); E78.5 Hyperlipidemia, unspecified; I10 Essential (primary) hypertension; W19.XXXA Unspecified fall, initial encounter
CPT/HCPCS: 70450; 99284